=== PATIENT | male | born 1955 | race Caucasian/White ===

== ENCOUNTER → 2017-07-21 14:24 | Outpatient (CLI) | payer BC, SELFPAY ==
[2017-07-21 16:04] LABS: PSA,Total- Diagnostic < 0.01 ng/mL (0.0-4.0)
== END ==
PROVIDERS: Family Provider Preventive Medicine Occupational Medicine; PCP Preventive Medicine Occupational Medicine; Visit Provider Urology
DX: R97.20 Elevated prostate specific antigen [PSA] (principal)
CPT/HCPCS: 36415; 84153

== ENCOUNTER 2017-08-05 20:18 | Emergency (ER) | payer BC, SELFPAY ==
[2017-08-05 20:19] VITALS: BP 163/90; PULSE 102; RESP 17; TEMP 36.4; O2SAT 97; BMI 31.4
--- NOTE | 2017-08-05 20:44 | EKG12_ITS ---
Test Reason : Blood Pressure : / mmHG Vent. Rate : 080 BPM Atrial Rate : 080 BPM P-R Int : 134 ms QRS Dur : 082 ms QT Int : 384 ms P-R-T Axes : 031 -07 058 degrees QTc Int : 442 ms Normal sinus rhythm Normal ECG Confirmed by NELSY CERVANTES, JACK ([id number]), editor publications [place] ([id number]) on 08/08/2017 3:04:40 PM Referred By: DONTA Confirmed By:JACK WHITTINGTON MD
--- NOTE | 2017-08-05 20:48 | RAD_ITS ---
STUDY: X-RAY CHEST REASON FOR EXAM: Male, 62 years old. Dizziness for couple of days. Patient has dyspnea on exertion. TECHNIQUE: Single AP portable view of the chest. COMPARISON: Prior comparison studies are not available for review at this time. FINDINGS: There is mild elevation of the right hemidiaphragm. Interstitial thickening is visible in both lungs. There is no demonstrated pleural abnormality. Normal size heart. Normal mediastinum and david. There is prominence of the pulmonary hilar arteries with peripheral pulmonary vascular congestion. Normal visualized aortic arch and descending thoracic aorta. Normal visualized thoracic spine. Normal visualized ribs, clavicles, and shoulders. There is no demonstrated abnormality of the visualized soft tissue structures of the upper abdomen. RAD/Chest 1 View (Portable) IMPRESSION: No radiographic evidence of acute cardiopulmonary disease. Electronically Signed: Gudelia Prasad MD at 21:06 EDT , Service support ,
[2017-08-05] MEDS: 0.9% Normal Saline 1,000 ML 1000 ML IV (20:53)
[2017-08-05] MEDS: Aspirin 81 MG TAB.CHEW 324 MG PO (20:53)
[2017-08-05 21:08] VITALS: BP 140/94; BP 150/71; BP 152/91; PULSE 71; PULSE 83; PULSE 91
[2017-08-05 21:10] LABS: Absolute Lymphocyte Count 1.88 X10^3/ul (0.83-4.51); Absolute Neutrophil Count 3.3 X10^3/uL (2.0-7.7); Basophil# 0.02 X10^3/uL; Basophil% 0.4 % (0-1); Eosinophil# 0.05 X10^3/uL; Eosinophils% 0.9 % (0-5); Hematocrit 39.6 % (40-54); Hemoglobin 12.7 g/dl (13.0-16.5); Lymphocyte # 1.88 X10^3/ul (4.0); Lymphocyte % 32.9 % (19-41); Mean Corp Hgb Conc 32.1 g/gl (32-36); Mean Corpuscular Hgb 26.1 pg (27.0-32.0); Mean Corpuscular Volume 81.5 fL (80-94); Mean Platelet Vol. 9.5 fl (6.2-12.0); Monocyte# 0.45 X10^3/uL; Monocyte% 7.9 % (0-10); Neutrophil % 57.7 % (47-70); Platelet Count 229 K/mm3 (150-450); RBC Distribution Width CV 14.8 % (11.6-14.6); RBC Distribution Width SD 43.5 fl (35.1-43.9); Red Blood Count 4.86 M/mm3 (4.6-6.2); White Blood Count 5.7 K/mm3 (4.4-11.0)
[2017-08-05 21:11] LABS: POSITIVE COUNT NO; POSITIVE DIFFERENTIAL NO; POSITIVE MORPHOLOGY NO
[2017-08-05 21:18] LABS: D-Dimer Quantitative (DVT/PE) < 0.27 FEU/ug/m (0.27-0.49)
[2017-08-05 21:28] LABS: Anion Gap 6 (5-15); BUN 19 mg/dL (7-18); BUN/Creat Ratio 16.8 RATIO (10-20); Calcium,Total 8.9 mg/dL (8.5-10.1); Chloride 103 mmol/L (98-107); Creatinine, Serum 1.13 mg/dL (0.70-1.30); EST Glomerular Filtration Rate 70 mL/min (>60); Est Glom Filt Rate - Afr Amer 85 mL/min (>60); Glucose 149 mg/dL (74-106); Potassium 4.1 mmol/L (3.5-5.1); Sodium Level 138 mmol/L (136-145)
--- NOTE | 2017-08-05 22:13 | ED.DCSUM_ITS ---
- ER Visit Summary Date of Service: 08/05/17 Chief Complaint: Vertigo History of Present Illness: The patient is a [address] Ewing and Dr. Mccarthy. She reports that yesterday while he was at a working at a computer he had the onset of vertigo. States that he was nauseated and vomited. He was very diaphoretic with this. States that it lasted approximately 2 hours. He denies any ear pain, change in his hearing, ringing or roaring in his ears. States that this has not occurred again since that time. On review of systems patient reports that he has chest tightness that began today. It is a constant pain that is 4 out of 10 currently and at worst. Is worsened by nothing including exertion. Is also relieved by nothing. reports patient has been short of breath with walking for months. Patient denies any chest pain with this. He has never had a stress test or heart catheterization. Physical Examination: Vitals: Stable. Afebrile. General: Well-nourished and well-developed. Head: Normocephalic atraumatic. Neck: Supple, no lymphadenopathy. No JVD. Nontender. Cardiovascular: Regular rate and rhythm. No murmurs. Respiratory: No respiratory distress. Clear to auscultation bilaterally. Abdominal: Soft, nontender, nondistended, normal bowel sounds. No guarding, rebound, or peritoneal signs. Back: Nontender. Extremities: Nontender, no edema. Skin: Normal color, no rash. Neurologic: Alert and oriented ?3. Cranial nerves II through XII are intact. Normal strength and sensation. Psych: Normal affect. Test Results: Chest x-ray shows no acute disease. EKG is sinus at 80 with no acute changes. Is unchanged from February 2017. Troponin is negative. D-dimer is negative. Chem-7 is more for glucose 149 BUN of 19. CBC is marked for an H& H of 12.7 39.6. Emergency Department Course and Treatment: Patient was treated with Zofran IV and Antivert p.o. He is resting comfortably. Negative orthostatic vital signs. Treatment Plan: I had a prolonged discussion the patient about exertional dyspnea and the possibility of this being cardiac in etiology. States this been going on for months and does not want to be admitted to the hospital. He will be discharged with instructions to follow-up his primary care physician as soon as possible I have suggested that he needs a stress test. He is instructed to return to emerge department for chest pain, worsening shortness of breath, or for any other concerns. Even just changing his mind. Disposition: To home in improved and stable condition. Impression:. Dyspnea, uncertain cause. 2. Vertigo resolved. 3. ZENIA score of 0. This note was generated with [employer] dictation software. It may contain incorrect words, spelling, and punctuation that were not noted in review of the chart prior to signing ED Disposition - Plan for ED Patient: Disposition: Home or Assisted Living Chief Complaint: Dizziness Instructions: ED Dyspnea Shortness of Breath Referrals: Brian Chaudhari DO [Primary Care Provider] - As soon as possible
[2017-08-05 22:21] VITALS: BP 167/94; PULSE 71; RESP 18; O2SAT 100
== END 2017-08-05 22:22 | disposition home or self-care (01) ==
PROVIDERS: Emergency Provider Emergency Medicine; Family Provider Preventive Medicine Occupational Medicine; PCP Preventive Medicine Occupational Medicine
DX: R06.00 Dyspnea, unspecified (principal); R42 Dizziness and giddiness; R11.2 Nausea with vomiting, unspecified; R07.9 Chest pain, unspecified; R51 Headache; E11.9 Type 2 diabetes mellitus without complications; I10 Essential (primary) hypertension; G47.33 Obstructive sleep apnea (adult) (pediatric); Z79.84 Long term (current) use of oral hypoglycemic drugs; Z79.899 Other long term (current) drug therapy; Z85.46 Personal history of malignant neoplasm of prostate; Z90.79 Acquired absence of other genital organ(s)
CPT/HCPCS: 71045; 80048; 84484; 85025; 85379; 93005; 99285

== ENCOUNTER → 2017-08-30 06:26 | Outpatient (CLI) | payer BC, SELFPAY ==
--- NOTE | 2017-08-30 09:14 | STRESSREP ---
Stress Test Report Exercise myocardial perfusion stress test. 62-year-old man with a history of chest pressure. Medications atorvastatin lisinopril metformin. Stress protocol: Resting EKG demonstrates normal sinus rhythm with rate of 74 bpm normal intervals and noted resting blood pressure is 152/88 mmHg. The patient exercised according to regular Marino protocol for total duration of 8 minutes the maximum heart rate attained was 148 bpm which was 92% of maximum predicted heart rate the maximum workload attained was 10.1 metabolic equivalents. The patient maintained sinus rhythm throughout the recording. At rest there were no ST or T-wave changes noted suggest ischemia peak exercise upsloping ST changes only were noted with no meet the criteria for ischemia. No clinical angina was noted the test was terminated due to shortness of breath. The resting blood pressure was 152/88 with a peak blood pressure 214/88 mmHg rate pressure product was 30,100. Myocardial perfusion protocol. 14.5 mCi of technetium 99m sestamibi was injected at rest. The patient exercised according to regular Marino protocol for total duration of 8 minutes attaining 92% maximum predicted heart rate at peak exercise 44.3 mCi of technetium 99m sestamibi was injected stress images were obtained stress and rest images were reconstructed and compared in the short axis vertical long and horizontal long axis. Gated images were also obtained. Perfusion SPECT analysis. Review of the stress images demonstrate normal uptake of tracer noted in all areas of the myocardium. The resting images similarly demonstrate normal uptake of tracer noted in all areas of the myocardium. No obvious areas of reversibility are noted suggest ischemia no previous infarct is noted. Gated SPECT analysis: The gated ejection fraction is noted to be 75%. Conclusion: Normal exercise myocardial perfusion stress test at a high workload. Excellent functional capacity. Preserved ejection fraction.
== END ==
PROVIDERS: Family Provider Preventive Medicine Occupational Medicine; PCP Preventive Medicine Occupational Medicine
DX: R07.89 Other chest pain (principal); R06.02 Shortness of breath; R42 Dizziness and giddiness; G47.33 Obstructive sleep apnea (adult) (pediatric)
CPT/HCPCS: 78452; 93017; A9500; A4216

== ENCOUNTER → 2018-03-02 14:26 | Outpatient (CLI) | payer BC, SELFPAY ==
[2018-03-02 15:53] LABS: PSA,Total- Diagnostic 0.06 ng/mL (0.0-4.0)
== END ==
PROVIDERS: Family Provider Preventive Medicine Occupational Medicine; PCP Preventive Medicine Occupational Medicine; Referring Provider Urology; Visit Provider Urology
DX: C61 Malignant neoplasm of prostate (principal)
CPT/HCPCS: 36415; 84153

== ENCOUNTER → 2018-09-28 11:11 | Outpatient (CLI) | payer BC, SELFPAY ==
[2018-09-28 11:09] VITALS: BMI 31.4
--- NOTE | 2018-09-28 11:21 | RAD_ITS ---
STUDY: X-RAY CHEST REASON FOR EXAM: Male, 63 years old. Two-week history of cough and shortness of breath. TECHNIQUE: PA and lateral views of the chest. COMPARISON: Comparison is made with prior study of August 05, 2017. FINDINGS: The lungs are clear and expanded. There is no demonstrated pleural abnormality. Normal size heart. Normal mediastinum and david. Normal visualized pulmonary arteries. Normal visualized aortic arch and descending thoracic aorta. Normal visualized thoracic spine. Normal visualized ribs, clavicles, and shoulders. There is no demonstrated abnormality of the visualized soft tissue structures of the upper abdomen. RAD/Chest PA and Lateral IMPRESSION: Normal x-ray examination of the chest. Electronically Signed: Boby Santiago, at 12:28 EDT , Service support ,
== END ==
PROVIDERS: Family Provider Preventive Medicine Occupational Medicine; PCP Preventive Medicine Occupational Medicine; Referring Provider Physician Assistant Surgical; Visit Provider Physician Assistant Surgical
DX: J20.9 Acute bronchitis, unspecified (principal)
CPT/HCPCS: 71046

== ENCOUNTER → 2018-10-05 11:50 | Outpatient (CLI) | payer BC, SELFPAY ==
[2018-09-28 11:22] VITALS: BMI 31.4
[2018-10-05 12:47] LABS: PSA,Total- Diagnostic 0.35 ng/mL (0.0-4.0)
== END ==
PROVIDERS: Family Provider Preventive Medicine Occupational Medicine; PCP Preventive Medicine Occupational Medicine; Referring Provider Urology; Visit Provider Urology
DX: C61 Malignant neoplasm of prostate (principal)
CPT/HCPCS: 36415; 84153

== ENCOUNTER → 2018-11-20 12:10 | Outpatient (CLI) | payer BC, SELFPAY ==
[2018-09-28 11:22] VITALS: BMI 31.4
[2018-11-19 14:16] LABS: Absolute Lymphocyte Count 1.63 X10^3/ul (0.83-4.51); Basophil# 0.05 X10^3/uL; Basophil% 0.8 % (0-1); Eosinophil# 0.11 X10^3/uL; Eosinophils% 1.8 % (0-5); Hematocrit 40.4 % (40-54); Hemoglobin 13.4 g/dl (13.0-16.5); Lymphocyte # 1.63 X10^3/ul (4.0); Lymphocyte % 26.1 % (19-41); Mean Corp Hgb Conc 33.2 g/gl (32-36); Mean Corpuscular Hgb 27.9 pg (27.0-32.0); Mean Corpuscular Volume 84.2 fL (80-94); Mean Platelet Vol. 10.6 fl (6.2-12.0); Monocyte# 0.43 X10^3/uL; Monocyte% 6.9 % (0-10); Neutrophil # 4.01 X10^3/uL (2.7-7.7); Neutrophil % 64.2 % (47-70); Platelet Count 215 K/mm3 (150-450); RBC Distribution Width CV 13.1 % (11.6-14.6); RBC Distribution Width SD 39.8 fl (35.1-43.9); White Blood Count 6.2 K/mm3 (4.4-11.0)
[2018-11-19 14:25] LABS: POSITIVE COUNT NO; POSITIVE DIFFERENTIAL NO; POSITIVE MORPHOLOGY NO
[2018-11-19 14:36] LABS: Creatinine, Serum 1.27 mg/dL (0.70-1.30); EST Glomerular Filtration Rate 61 mL/min (>60); Est Glom Filt Rate - Afr Amer 74 mL/min (>60); PSA,Total- Diagnostic 0.05 ng/mL (0.0-4.0)
--- NOTE | 2018-11-20 12:16 | CT_ITS ---
STUDY: CT PELVIS WITH CONTRAST REASON FOR EXAM: Male, 63 years old. Recent diagnosis of prostate cancer. Radiation treatment planning examination. RADIATION DOSAGE (If Supplied By Facility): CTDIvol = ( 24.62 ) mGy, DLP = ( 881.08 ) mGycm TECHNIQUE: Transaxial imaging of the pelvis was performed without oral contrast. 100 IV/Oral Isovue 370 was administered intravenously. Individualized dose optimization techniques were used for this CT. COMPARISON: None. FINDINGS: Normal urinary bladder. The patient is status post prostatectomy. Radiation seeds are seen in the prostatic bed. The urethra is unremarkable. Normal visualized small intestine. Normal visualized colon. There is no pelvic fluid. There is no pelvic lymphadenopathy or mass lesion. There is diffuse atherosclerotic calcification of the pelvic arteries. Small bilateral inguinal hernias containing fat more prominent on the left side. There are diffuse degenerative changes of the visualized lumbar spine. Degenerative changes of the sacroiliac joints worse on the right side. CT/CT Pelvis W/CONT Therapy IMPRESSION: Status post prostatectomy. Radiation seeds are seen in the prostatic bed. Electronically Signed: Boby Santiago, at 13:28 EDT , Service support ,
== END ==
PROVIDERS: Family Provider Preventive Medicine Occupational Medicine; PCP Preventive Medicine Occupational Medicine; Referring Provider Radiology Radiation Oncology; Visit Provider Radiology Radiation Oncology
DX: Z01.818 Encounter for other preprocedural examination (principal); C61 Malignant neoplasm of prostate
CPT/HCPCS: 36415; 51600; 72193; 82565; 84153; 85025; Q9967

== ENCOUNTER → 2018-12-19 11:18 | Outpatient (CLI) | payer BC, SELFPAY ==
[2018-09-28 11:22] VITALS: BMI 31.4
[2018-12-19 12:12] LABS: Absolute Lymphocyte Count 0.58 X10^3/uL (0.83-4.51); Absolute Neutrophil Count 3.1 X10^3/uL (2.0-7.7); Basophil# 0.05 X10^3/uL; Basophil% 1.1 % (0-1); Eosinophils% 2.3 % (0-5); Hematocrit 39.2 % (40-54); Hemoglobin 13.1 g/dL (13.0-16.5); Lymphocyte # 0.58 X10^3/ul (4.0); Lymphocyte % 13.3 % (19-41); Mean Corp Hgb Conc 33.4 g/dL (32-36); Mean Corpuscular Hgb 28.5 pg (27.0-32.0); Mean Corpuscular Volume 85.2 fL (80-94); Mean Platelet Vol. 10.3 fl (6.2-12.0); Monocyte# 0.49 X10^3/uL; Monocyte% 11.3 % (0-10); NRBC Flagged by Analyzer 0 % (0-5); Neutrophil # 3.11 X10^3/uL (2.7-7.7); Neutrophil % 71.5 % (47-70); POSITIVE DIFFERENTIAL YES; Platelet Count 158 K/mm3 (150-450); RBC Distribution Width CV 13.3 % (11.6-14.6); RBC Distribution Width SD 40.5 fl (35.1-43.9); White Blood Count 4.4 K/mm3 (4.4-11.0)
[2018-12-19 12:15] LABS: Differential Indicated SCAN CRITERIA MET
== END ==
PROVIDERS: Family Provider Preventive Medicine Occupational Medicine; PCP Preventive Medicine Occupational Medicine; Referring Provider Radiology Radiation Oncology; Visit Provider Radiology Radiation Oncology
DX: C61 Malignant neoplasm of prostate (principal)
CPT/HCPCS: 36415; 85025

== ENCOUNTER → 2019-01-28 14:11 | Outpatient (CLI) | payer BC, SELFPAY ==
[2018-09-28 11:22] VITALS: BMI 31.4
[2019-01-28 14:55] LABS: Absolute Lymphocyte Count 0.73 X10^3/uL (0.83-4.51); Absolute Neutrophil Count 3.6 X10^3/uL (2.0-7.7); Basophil# 0.04 X10^3/uL; Basophil% 0.8 % (0-1); Eosinophil# 0.06 X10^3/uL; Eosinophils% 1.2 % (0-5); Hematocrit 38.5 % (40-54); Hemoglobin 13.2 g/dL (13.0-16.5); Lymphocyte # 0.73 X10^3/ul (4.0); Lymphocyte % 14.7 % (19-41); Mean Corp Hgb Conc 34.3 g/dL (32-36); Mean Corpuscular Hgb 29.5 pg (27.0-32.0); Mean Corpuscular Volume 86.1 fL (80-94); Mean Platelet Vol. 9.6 fl (6.2-12.0); Monocyte# 0.53 X10^3/uL; Monocyte% 10.7 % (0-10); NRBC Flagged by Analyzer 0 % (0-5); Neutrophil # 3.57 X10^3/uL (2.7-7.7); Neutrophil % 71.8 % (47-70); Platelet Count 200 K/mm3 (150-450); RBC Distribution Width CV 13.2 % (11.6-14.6); RBC Distribution Width SD 41.1 fl (35.1-43.9); Red Blood Count 4.47 M/mm3 (4.6-6.2)
== END ==
PROVIDERS: Family Provider Preventive Medicine Occupational Medicine; PCP Preventive Medicine Occupational Medicine; Referring Provider Radiology Radiation Oncology; Visit Provider Radiology Radiation Oncology
DX: C61 Malignant neoplasm of prostate (principal)
CPT/HCPCS: 36415; 85025

== ENCOUNTER → 2019-03-12 10:59 | Outpatient (CLI) | payer BC, SELFPAY ==
[2019-02-24 11:18] VITALS: BMI 31.4
[2019-03-12 11:46] LABS: Color, Urine Yellow (Yellow); Glucose, Dipstick Normal (Normal); Ketone-Dipstick 5 mg/dl (Negative); Leukocyte Esterase-Dipstick Negative /ul (Negative); Nitrite-Dipstick Negative (Negative); Occult Blood-Urine Negative /ul (Negative); Protein-Dipstick 30 mg/dl (Negative); Urine Bilirubin Dipstick Negative (Negative); Urine Clarity Sl. Cloudy (Clear); Urine Urobilinogen 4 mg/dl (Normal)
[2019-03-12 12:02] LABS: Microalbumin,Random Urine 60.2 mg/L (NO RANGE EST.); Microalbumin:Creatinine Ratio 18.9 mg/g CRE (<30 mg/g CRE); Protein, Urine (Random) 43.8 mg/dL (<11.9); Protein:Creat Ratio 138 mg/g CRE (0-200)
[2019-03-12 12:03] LABS: Albumin, Serum 3.8 g/dL (3.2-5.0); BUN 18 mg/dL (7-18); Calcium,Total 9.4 mg/dL (8.5-10.1); Chloride 104 mmol/L (98-107); EST Glomerular Filtration Rate 65 mL/min (>60); Est Glom Filt Rate - Afr Amer 79 mL/min (>60); Glucose 174 mg/dL (74-106); Phosphorus 3.5 mg/dL (2.5-4.9); Potassium 4.4 mmol/L (3.5-5.1); Sodium Level 137 mmol/L (136-145)
[2019-03-12 12:10] LABS: PTHIN 43.2 pg/mL (18.4-80.1); Vitamin D,25 Hydroxy 56.4 ng/mL (29.95-100.01)
== END ==
PROVIDERS: Family Provider Preventive Medicine Occupational Medicine; PCP Preventive Medicine Occupational Medicine; Referring Provider Internal Medicine Nephrology; Visit Provider Internal Medicine Nephrology
DX: N18.3 Chronic kidney disease, stage 3 (moderate) (principal)
CPT/HCPCS: 36415; 80069; 81002; 82043; 82306; 82570; 83970; 84156

== ENCOUNTER → 2019-03-13 13:59 | Outpatient (CLI) | payer BC, SELFPAY ==
[2019-02-24 11:18] VITALS: BMI 31.4
[2019-03-13 15:49] LABS: Hematocrit 37.6 % (40-54); Hemoglobin 12.3 g/dL (13.0-16.5); Mean Corp Hgb Conc 32.7 g/dL (32-36); Mean Corpuscular Hgb 29.5 pg (27.0-32.0); Mean Corpuscular Volume 90.2 fL (80-94); Mean Platelet Vol. 10.2 fl (6.2-12.0); Platelet Count 207 K/mm3 (150-450); RBC Distribution Width CV 13.4 % (11.6-14.6); RBC Distribution Width SD 44.3 fl (35.1-43.9); Red Blood Count 4.17 M/mm3 (4.6-6.2)
== END ==
PROVIDERS: Family Provider Preventive Medicine Occupational Medicine; PCP Preventive Medicine Occupational Medicine; Referring Provider Internal Medicine Nephrology; Visit Provider Internal Medicine Nephrology
DX: N18.3 Chronic kidney disease, stage 3 (moderate) (principal)
CPT/HCPCS: 85027

== ENCOUNTER → 2019-05-17 10:37 | Outpatient (CLI) | payer BC, SELFPAY ==
[2019-02-24 11:18] VITALS: BMI 31.4
[2019-05-17 11:58] LABS: PSA,Total- Diagnostic < 0.01 ng/mL (0.0-4.0)
== END ==
PROVIDERS: Family Provider Preventive Medicine Occupational Medicine; PCP Preventive Medicine Occupational Medicine; Referring Provider Urology; Visit Provider Urology
DX: C61 Malignant neoplasm of prostate (principal)
CPT/HCPCS: 36415; 84153; 84403

== ENCOUNTER → 2019-10-03 12:33 | Outpatient (CLI) | payer BC, SELFPAY ==
[2019-02-24 11:18] VITALS: BMI 31.4
[2019-10-03 14:20] LABS: Anion Gap 5 (5-15); BUN 18 mg/dL (7-18); Calcium,Total 9.5 mg/dL (8.5-10.1); Chloride 102 mmol/L (98-107); EST Glomerular Filtration Rate 65 mL/min (>60); Est Glom Filt Rate - Afr Amer 79 mL/min (>60); Glucose 195 mg/dL (74-106); PTHIN 43.8 pg/mL (18.4-80.1); Phosphorus 3.3 mg/dL (2.5-4.9); Potassium 4.7 mmol/L (3.5-5.1); Protein, Urine (Random) 43.4 mg/dL (<11.9); Protein:Creat Ratio 131 mg/g CRE (0-200); Sodium Level 136 mmol/L (136-145)
[2019-10-03 14:50] LABS: Color, Urine Yellow (Yellow); Glucose, Dipstick Normal (Normal); Ketone-Dipstick 5 mg/dl (Negative); Leukocyte Esterase-Dipstick 25 /ul (Negative); Nitrite-Dipstick Negative (Negative); Occult Blood-Urine Negative /ul (Negative); Protein-Dipstick 30 mg/dl (Negative); Specific Gravity, Urine 1.015 (1.002-1.030); Urine Bilirubin Dipstick Negative (Negative); Urine Clarity Sl. Cloudy (Clear); Urine Urobilinogen 4 mg/dl (Normal); Urine pH 6.5 (5.0 - 8.0)
== END ==
PROVIDERS: PCP Preventive Medicine Occupational Medicine; Referring Provider Internal Medicine; Visit Provider Internal Medicine
DX: N18.3 Chronic kidney disease, stage 3 (moderate) (principal)
CPT/HCPCS: 36415; 80048; 81002; 82570; 83970; 84100; 84156

== ENCOUNTER → 2019-11-20 11:13 | Outpatient (CLI) | payer BC, SELFPAY ==
[2019-02-24 11:18] VITALS: BMI 31.4
[2019-11-20 12:38] LABS: Anion Gap 6 (5-15); BUN 28 mg/dL (7-18); BUN/Creat Ratio 20.7 RATIO (10-20); Calcium,Total 8.9 mg/dL (8.5-10.1); Chloride 102 mmol/L (98-107); Creatinine, Serum 1.35 mg/dL (0.70-1.30); EST Glomerular Filtration Rate 57 mL/min (>60); Est Glom Filt Rate - Afr Amer 69 mL/min (>60); Glucose 131 mg/dL (74-106); PSA,Total- Diagnostic < 0.01 ng/mL (0.0-4.0); Potassium 4.4 mmol/L (3.5-5.1); Sodium Level 136 mmol/L (136-145)
== END ==
PROVIDERS: PCP Preventive Medicine Occupational Medicine; Referring Provider Urology; Visit Provider Urology
DX: C61 Malignant neoplasm of prostate (principal)
CPT/HCPCS: 36415; 80048; 84153

== ENCOUNTER → 2020-05-19 09:54 | Outpatient (CLI) | payer BC, SELFPAY ==
[2019-02-24 11:18] VITALS: BMI 31.4
[2020-05-19 10:55] LABS: PSA,Total- Diagnostic < 0.01 ng/mL (0.0-4.0)
== END ==
PROVIDERS: PCP Preventive Medicine Occupational Medicine; Referring Provider Urology; Visit Provider Urology
DX: C61 Malignant neoplasm of prostate (principal)
CPT/HCPCS: 36415; 84153

== ENCOUNTER → 2020-11-12 12:16 | Outpatient (CLI) | payer BC, SELFPAY ==
[2019-02-24 11:18] VITALS: BMI 31.4
[2020-11-12 14:12] LABS: PSA,Total- Diagnostic < 0.01 ng/mL (0.0-4.0)
== END ==
PROVIDERS: PCP Preventive Medicine Occupational Medicine; Visit Provider Urology
DX: C61 Malignant neoplasm of prostate (principal)
CPT/HCPCS: 36415; 84153

== ENCOUNTER → 2021-05-19 14:13 | Outpatient (CLI) | payer BC, SELFPAY ==
[2021-05-19 15:19] LABS: PSA,Total- Diagnostic < 0.01 ng/mL (0.0-4.0)
== END ==
PROVIDERS: PCP Preventive Medicine Occupational Medicine; Referring Provider Urology; Visit Provider Urology
DX: C61 Malignant neoplasm of prostate (principal)
CPT/HCPCS: 36415; 84153

== ENCOUNTER → 2022-06-22 | Outpatient (CLI) | payer MEDICARE, SELFPAY ==
[2022-06-22 14:25] LABS: Anion Gap 4 (5-15); BUN 20 mg/dL (7-18); BUN/Creat Ratio 14.6 RATIO (10-20); Calcium,Total 9.1 mg/dL (8.5-10.1); Chloride 106 mmol/L (98-107); Creatinine, Serum 1.37 mg/dL (0.70-1.30); EST Glomerular Filtration Rate 55 mL/min (>60); Est Glom Filt Rate - Afr Amer 67 mL/min (>60); Glucose 114 mg/dL (74-106); Potassium 5.2 mmol/L (3.5-5.1); Sodium Level 139 mmol/L (136-145)
[2022-06-22 14:37] LABS: Protein, Urine (Random) 43.6 mg/dL (<11.9); Protein:Creat Ratio 87 mg/g CRE (0-200)
== END | disposition home or self-care (01) ==
PROVIDERS: PCP Preventive Medicine Occupational Medicine; Referring Provider Internal Medicine Nephrology; Visit Provider Internal Medicine Nephrology
DX: N18.2 Chronic kidney disease, stage 2 (mild) (principal)
CPT/HCPCS: 36415; 80048; 82570; 84156

== ENCOUNTER 2022-10-31 14:08 | Outpatient (CLI) | payer MEDICARE, SELFPAY ==
[2022-10-31 09:09] VITALS: BP 137/85; PULSE 108; RESP 16; TEMP 36.9; O2SAT 100; BMI 31.6
--- NOTE | 2022-10-31 09:43 | HP.PCM_ITS ---
[facility] - General General Date of Admission: 10/31/22 Date of Service: 10/31/22 Chief Complaint: Screening colonoscopy HPI Narrative DANNIE GARCIA, is a 67 M who presents today for screening colonoscopy. He has a past medical history of diabetes, hypertension, hypercholesterolemia and arrives here today for screening colonoscopy. He does not have any abdominal pain. Does not any crampy. Does not have any chest pain or shortness of marvin th. Does not have any nausea. His prep was not that good so he is getting tapwater enemas prior to the colonoscopy.. [facility] Medical History (Updated 10/27/22 @ 13:57 by Ariella Mayer) Cancer Cardiology follow-up encounter CKD (chronic kidney disease) stage 3, GFR 30-59 ml/min CPAP (continuous positive airway pressure) dependence Depression Diabetes History of stress test Hypertension Low iron Non-smoker Prostate disease Shortness of breath on exertion Sleep apnea Wears glasses Home Medications lisinopril 5 mg tablet 5 mg PO QHS 03/02/17 [History Last Taken Unknown] atorvastatin 40 mg tablet 40 mg PO QHS 08/05/17 [History Last Taken Unknown] cinnamon bark 500 mg capsule (Cinnamon) 500 mg PO DAILY 09/29/22 [History Last Taken Unknown] coenzyme Q10 75 mg capsule (Ultra CoQ10) 75 mg PO DAILY 09/29/22 [History Last Taken Unknown] dapagliflozin propanediol 10 mg tablet (Farxiga) 10 mg PO DAILY 09/29/22 [History Last Taken Unknown] ferrous sulfate 325 mg (65 mg iron) tablet 325 mg PO DAILY 09/29/22 [History Last Taken Unknown] metformin 1,000 mg 24 hr tablet,extended release 1,000 mg PO BID 09/29/22 [History Last Taken Unknown] omega-3 fatty acids-fish oil 684 mg-1,200 mg capsule,delayed release 1 cap PO DAILY 09/29/22 [History Last Taken Unknown] sertraline 50 mg tablet 50 mg PO DAILY 09/29/22 [History Last Taken Unknown] vitamin D3 125 mcg (5,000 unit)-vitamin K2 90 mcg capsule cap PO 09/29/22 [History Last Taken Unknown] Allergy/AdvReac Type Severity Reaction Status Date / Time No Known Allergies Allergy Verified 10/31/22 09:08 Surgical History (Updated 10/27/22 @ 13:57 by Ariella Mayer) History of cardiac catheterization Hx of prostatectomy Social History (Updated 09/29/22 @ 11:11 by Renee De Leon) household members: spouse Smoking Status: Never smoker ROS Review of Systems ROS Unobtainable: other Constitutional Constitutional: Denies fatigue, fever(s), poor appetite, weight gain or weight loss ENT HEENT: Denies mouth lesions Cardiovascular Cardiovascular: Denies abdominal bloating, abdominal edema or abdominal pain Respiratory/Chest Respiratory/Chest: Denies change in mental status, change in phlegm color, chest congestion or chest tightness Gastrointestinal Gastrointestinal: Denies belching, bloating, change in bowel habits, change in stool character, chewing difficulty, coffee ground emesis, constipation, cramping, diarrhea, dyspepsia, dysphagia, early satiety, excessive flatus, fecal incontinence, heartburn, hematemesis, hematochezia, hemorrhoids, loose stools, melena, nausea, odynophagia, rectal bleeding, tenesmus, vomiting or weight changes Genitourinary Genitourinary: Denies abdominal discomfort, burning urination or itching Musculoskeletal Musculoskeletal: Reports as per HPI; Denies muscle weakness or myalgias Integumentary Integumentary: Denies jaundice Neurologic Neurologic: Denies lack of coordination or weakness Psychiatric Psychiatric: Denies confusion, depression, memory loss, mood swings, paranoia or suicidal ideation Endocrine Endocrinology: Denies systems reviewed and no addt'l complaints, except as documented Hematologic/Lymphatic Hematologic/Lymphatic: Denies anemia, easy bleeding, easy bruising or lymphadenopathy Allergic/Immunologic Allergic/Immunologic: Denies systems reviewed and no addt'l complaints, except as documented Vital Signs Vital Signs Vital Signs: 10/31/22 09:09 10/31/22 09:09 Temperature 98.5 F Temperature Source Temporal Pulse Rate 108 H Respiratory Rate 16 Respiratory Pattern Normal Blood Pressure 137/85 H Blood Pressure Mean 102 Blood Pressure Source Monitor Blood Pressure Position Semi-Fowlers Blood Pressure Location Right Arm Pulse Ox 100 Oxygen Delivery Method Room Air Weight Weight: 232 lb 12.8 oz Body Mass Index (BMI) 31.6 Physical Exam Const alert General Appearance: cooperative Orientation / Consciousness: oriented to person HEENT hearing grossly normal bilaterally Head and Scalp: normal to inspection Face and Sinus: face symmetric Nose: external nose normal Mouth: oral and palatal mucosa normal Eyes conjunctivae normal General Eye: normal appearance of both eyes Neck full ROM General: normal visual inspection Lymph Lymphatic: no lymphadenopathy noted Chest inspection of chest normal and palpation of chest normal Chest: symmetrical chest wall rise Resp normal respiratory effort Effort and Inspection: able to speak in complete sentences Cardio regular rate GI non-distended Percussion: normal to percussion Rectal Exam: deferred Neuro Speech: speech normal Gait (Neuro): normal gait Assessment & Plan Assessment/Plan (1) Encounter for screening for malignant neoplasm of colon: PLAN: He was explained alternatives, risk, benefits including not withstanding bleeding, infection, sepsis, perforation, need for emergent surgery . He will have an ASA of 3.
[2022-10-31 10:02] LABS: Bedside Glucose 149 mg/dL (74-106)
--- NOTE | 2022-10-31 10:22 | SUR.PREOP ---
pt received [address] valencia order due to pt stool not being clear, after 4th enema dr valencia was made aware that pt stool was not any clearer, dr valencia went to talk to pt and the decision was made to cancel pt for today and reschedule him
== END 2022-10-31 23:59 | disposition home or self-care (01) ==
LOC: PAT 12-16 14:08
PROVIDERS: PCP Preventive Medicine Occupational Medicine; Referring Provider Preventive Medicine Occupational Medicine; Visit Provider Internal Medicine Gastroenterology
PROC: 0DJD8ZZ Inspection of Lower Intestinal Tract, Via Natural or Artificial Opening Endoscopic (ICD-10-PCS; CPT 45378; principal; 2022-10-31 10:25)
DX: Z01.818 Encounter for other preprocedural examination (principal)
CPT/HCPCS: 82962; J7120; J2405

== ENCOUNTER → 2022-11-11 | Outpatient (CLI) | payer MEDICARE, SELFPAY ==
[2022-11-11 15:55] LABS: Hematocrit 42.9 % (40-54); Hemoglobin 13.5 g/dL (13.0-16.5); Mean Corp Hgb Conc 31.5 g/dL (32-36); Mean Corpuscular Hgb 27.5 pg (27.0-32.0); Mean Corpuscular Volume 87.4 fL (80-94); Mean Platelet Vol. 10.3 fl (6.2-12.0); Platelet Count 231 K/mm3 (150-450); RBC Distribution Width CV 14.4 % (11.6-14.6); RBC Distribution Width SD 45.9 fl (35.1-43.9); Red Blood Count 4.91 M/mm3 (4.6-6.2)
[2022-11-11 16:11] LABS: Protein, Urine (Random) 29.2 mg/dL (<11.9); Protein:Creat Ratio 121 mg/g CRE (0-200)
[2022-11-11 16:31] LABS: Albumin, Serum 3.7 g/dL (3.2-5.0); BUN 17 mg/dL (7-18); BUN/Creat Ratio 12.1 RATIO (10-20); Calcium,Total 8.9 mg/dL (8.5-10.1); Chloride 105 mmol/L (98-107); Creatinine, Serum 1.41 mg/dL (0.70-1.30); EST Glomerular Filtration Rate 54 mL/min (>60); Est Glom Filt Rate - Afr Amer 65 mL/min (>60); Glucose 130 mg/dL (74-106); Phosphorus 2.4 mg/dL (2.5-4.9); Potassium 4.6 mmol/L (3.5-5.1); Sodium Level 138 mmol/L (136-145)
[2022-11-11 17:29] LABS: Vitamin D,25 Hydroxy 83.2 ng/mL
[2022-11-14 07:40] LABS: PTHIN 54.4 pg/mL (18.4-80.1)
== END | disposition home or self-care (01) ==
LOC: LAB 13:20
PROVIDERS: PCP Preventive Medicine Occupational Medicine; Referring Provider Internal Medicine Nephrology; Visit Provider Internal Medicine Nephrology
DX: N18.31 Chronic kidney disease, stage 3a (principal); E55.9 Vitamin D deficiency, unspecified
CPT/HCPCS: 36415; 80069; 82306; 82570; 83970; 84156; 85027

== ENCOUNTER 2022-11-25 09:33 | Day surgery (SDC) | payer MEDICARE, SELFPAY ==
--- NOTE | 2022-11-25 10:15 | HP.PCM_ITS ---
History and Physical Date of Admission: 11/25/22 Visit Reasons: SCOPE, POOR PREP W/DR FRIEND 10/31 Chief Complaint: c-scope Is patient in pain?: No Allergies No Known Allergies Allergy (Verified 11/09/22 09:50) Medications lisinopril 5 mg tablet 5 mg PO QHS 03/02/17 [History Confirmed 11/09/22] atorvastatin 40 mg tablet 40 mg PO QHS 08/05/17 [History Confirmed 11/09/22] cinnamon bark 500 mg capsule (Cinnamon) 500 mg PO DAILY 09/29/22 [History Confirmed 11/09/22] coenzyme Q10 75 mg capsule (Ultra CoQ10) 75 mg PO DAILY 09/29/22 [History Confirmed 11/09/22] dapagliflozin propanediol 10 mg tablet (Farxiga) 10 mg PO DAILY 09/29/22 [History Confirmed 11/09/22] ferrous sulfate 325 mg (65 mg iron) tablet 325 mg PO DAILY 09/29/22 [History Confirmed 11/09/22] omega-3 fatty acids-fish oil 684 mg-1,200 mg capsule,delayed release 1 cap PO DAILY 09/29/22 [History Confirmed 11/09/22] sertraline 50 mg tablet 50 mg PO DAILY 09/29/22 [History Confirmed 11/09/22] vitamin D3 125 mcg (5,000 unit)-vitamin K2 90 mcg capsule cap PO 09/29/22 [History Confirmed 11/09/22] semaglutide 0.25 mg or 0.5 mg (2 mg/3 mL) subcutaneous pen injector (Ozempic) 0.25 mg subcut QWEEK 11/09/22 [History Confirmed 11/09/22] [facility] Medical History Cancer Cardiology follow-up encounter CKD (chronic kidney disease) stage 3, GFR 30-59 ml/min CPAP (continuous positive airway pressure) dependence Depression Diabetes History of stress test Hypertension Low iron Non-smoker Prostate disease Shortness of breath on exertion Sleep apnea Wears glasses Surgical History History of cardiac catheterization Hx of prostatectomy Family History (Updated 11/09/22 @ 09:48 by Jocelyn Kwok) Mother Diabetes Social History (Updated 11/09/22 @ 09:49 by Jocelyn Kwok) household members: spouse Smoking Status: Never smoker alcohol intake: never substance use type: does not use HPI HPI HPI: 67-year-old gentleman. Here underwent open access evaluation for a colonoscopy. History demonstrates that Dr. García Vanegas performed a colonoscopy for him approximately 13 years prior. I report this examination was normal. The pa shima is on iron supplementation which was asked to be held. On October 31, 2022 an attempt was made to pursue a colonoscopy per Dr. Beavers Friend. He had a failed bowel prep and despite enemas could not be cleared so the procedure was canceled. The patient and present because the patient has had progressive shortness of breath of undetermined etiology. He states that he has had a stress test and echocardiogram and now even a heart cath which was not remarkable. The etiology to his progressive shortness of breath as far as the patient is aware has not yet been determined. He does have chronic renal insufficiency stage III and he is to see Dr. Rosado November 23, 2022. He also has a history of sleep apnea. He is scheduled for follow-up with Dr. Brian Choi December 2022. He recently was converted from metformin to Ozempic and has been feeling better and apparently a relatively high potassium level has now corrected itself. As of October 24, 2022 white count was 5.6 with a hemoglobin 12.9 hematocrit 39.6 platelet count 258,000. He did have prostate cancer 2017 and had a radical prostatectomy. He claims that it recurred and then he had local radiation treatment. He claims at the moment that his PSA levels are normal. He states that he has never been told that he has any bony metastasis. When he is feeling short of breath he does have a home pulse oximetry which apparently records above 95%. Most recent BUN 25 with creatinine of 1.57 and a GFR of 45 placing him in chronic kidney disease 3 AA. Coags were normal. I do not have his iron levels. ROS General General: Yes fatigue; No weight change, appetite, colon cancer, breast cancer or weakness HEENT HEENT: No difficulty swallowing, eye injury, eye surgery, swollen glands or hoarseness Endo Endocrine: Yes diabetes mellitus; No thyroid disease, thyroid cancer, Hair loss, heat intolerance or cold intolerance Skin Skin: No rash or changing moles Musc Musculoskeletal: No back problems, arthritis, rheumatoid arthritis, gout or joint pain Cardio Cardiovascular: Yes high blood pressure; No murmur, pacemaker, heart disease, atrial fibrillation, heart attack, heart stent, palpitations, shortness of breat with exertion or chest pain Psych Psychiatric: Yes depression and anxiety; No hearing voices Resp Respiratory: Yes shortness of breath, Yes sleep apnea, No cough, No COPD, No asthma, No emphysema and No wheezing Gastro Gastrointestinal: No abdominal pain, No nausea or vomiting, No diarrhea, No constipation, No blood in stool, No acid reflux, No hemorrhoids, No ulcers, No gallbladder problem and No black,tarry stools Fermín Hematologic: No blood thinners, No blood disorders, No bleeding, Yes anemia and No blood clots Neuro Neurologic: No system reviewed and no additional complaints, except as documented, No as per HPI, No abnormal gait, No abnormal hearing, No abnormal movements, No abnormal speech, No behavioral changes, No burning sensations, No confusion, No convulsions, No disequilibrium, No dizziness, No localized weakness, No frequent falls, No headache(s), No lack of coordination, No loss of vision, No memory loss, No numbness, No other visual disturbances, No radicular pain, No restless legs, No sensory deficit, No syncope, No tingling, No tremor(s), No weakness and No other Exam Const General: cooperative, comfortable and no acute distress Other: Pale in complexion however history of being redheaded and always pale HENMT Head: normal to inspection Eyes General: appearance normal, both eyes and all related structures Neck Neck: normal visual inspection Chest Chest palpation & inspection: normal inspection of the chest Resp Effort & Inspection: normal respiratory effort Auscultation: clear to auscultation bilaterally Cardio Rate: regular rate Rhythm: regular rhythm GI Inspection: normal to inspection Palpation: soft and no hepatosplenomegaly Musc Cervical Spine: normal cervical lordosis Skin General: no rashes or lesions noted Neuro General: patient alert, patient awake and patient oriented x3 Extrem General: no calf tenderness Psych Appearance: grossly normal Assessment and Plan Assessment and Plan (1) Encounter for screening for malignant neoplasm of colon: Status: Acute Plan: Shortness of breath and iron deficiency anemia of undetermined etiology. I recommended the patient a combined esophagogastroduodenoscopy with possible biopsy and colonoscopy with possible biopsy or polypectomy as indicated. He and his are aware of the technique, benefit, risk, alternatives. We will have him hold his fish oil therapy at the moment. We will provide at his acknowledgment a GoLytely bowel prep supplemented with Dulcolax tablets. We will try to schedule and expedite his care. I appreciate the opportunity of assisting with the surgical care. Copy: Dr. Brian Barr M.D., F.A.C.S. I have examined the patient and the H&P has been reviewed. There are no clinical changes since date of exam. Brian Barr M.D., F.A.C.S.
[2022-11-25 10:16] VITALS: BP 131/80; PULSE 79; RESP 16; TEMP 36.6; O2SAT 96; BMI 30.5
[2022-11-25] MEDS: Lactated Ringers 1,000 ML 15 ML IV (10:29)
--- NOTE | 2022-11-25 10:45 | COLBX_PTH ---
PATIENT: DANNIE GARCIA LOC: EN U#:[id number] AGE/SX: 67/M ROOM: RE11/25/[address]: Dr. Brian Barr MD : [id number] BED: DIS: 11/25/2022 SPEC #: [id number] RECD: 11/25/22 11:43 STATUS: NICO REMika #: [id number] VAL: 11/25/22 10:[address]: Brian Barr DEPT: SURGICAL PATHOLOGY RECD BY: Chris Ellis ENTERED: 11/25/22 12:25 SP TYPE: COLON BX OTHR DR: Dr. Brian Chaudhari DO Tissues: A - Gastric mucous membrane B - Esophagus, NOS Procedures: Surgery Specimen Level IV HEADER OPERATION: Colonoscopy, EGD with biopsies ([facility]) PRE-OP DIAGNOSIS: Screening TISSUE SUBMITTED: A - Antrum biopsy for H. pylori and path, B - Distal esophagus biopsy MICROSCOPIC DIAGNOSIS A. Antrum, biopsy: Mild gastritis. See microscopic description and comment. B. Distal esophagus, biopsy: A fragment of squamous mucosa with chronic inflammation. SJ: 11/28/2022 COMMENT A. The results of immunohistochemistry for Helicobacter pylori will be reported separately ([id number]). MICROSCOPIC DESCRIPTION Slides are reviewed. The specimen shows fragments of gastric mucosa with chronic inflammatory cell infiltrates in the lamina propria consisting of lymphocytes and plasma cells, consistent with mild chronic gastritis. GROSS DESCRIPTION A - Received in fixative is one container labeled with the patient's name and designated antrum biopsy. The specimen consists of one irregular fragment of light sales soft tissue that measures 0.3 x 0.3 x 0.1 cm. The specimen is totally submitted in one cassette. B - Received in fixative is one container labeled with the patient's name and designated distal esophagus biopsy. The specimen consists of one irregular fragment of light sales soft tissue that measures 0.4 x 0.2 x 0.1 cm. The specimen is totally submitted in one cassette. / MARY:haley 11/25/2022 TC:3 CPT: 57340 x2
--- NOTE | 2022-11-25 10:45 | IMM_PTH ---
PATIENT: DANNIE GARCIA LOC: EN U#:[id number] AGE/SX: 67/M ROOM: RE11/25/[address]: Dr. Brian Barr MD : 1955 BED: DIS: 11/25/2022 SPEC #: [id number] RECD: 11/25/22 14:14 STATUS: NICO REQ #: [id number] VAL: 11/25/22 10:[address]: Brian Barr DEPT: IMMUNOHISTOCHEMISTRY RECD BY: Suzy Diaz ENTERED: 11/25/22 14:15 SP TYPE: IMMUNO OTHR DR: Dr. Brian Chaudhari DO Tissues: A - Stomach, NOS Procedures: H Pylori (initial) PHYSICIAN & INSTITUTION [place] [address] SPECIMEN INFORMATION: Tissue Source: A - Antrum Clinical Info: Screening Specimen Number: [id number] CPT code: 21825 METHODOLOGY: Deparaffinized sections of prefer/formalin-fixed tissue or PAP/DQ stained slides are incubated with monoclonal/polyclonal antibodies/oligonucleotide probes. Localization is made via biotin free immunoperoxidase method. Appropriate controls are performed and reacted as expected. Results on target cell population are indicated in the following table: RESULTS: ANTIBODY / CLONE RESULT Block A H Pylori (polyclonal) negative These tests were developed and their performance characteristics determined by [facility]. They may not have been cleared or approved by the U.S. Food and Drug Administration. The FDA has determined that such clearance or approval is not necessary. The above immunohistochemical/dualISH markers are ordered and reviewed by the Pathologist. INTERPRETATION: A. Antrum, biopsy: Negative for H. pylori organisms. SJ : 11/29/22
[2022-11-25 11:09] LABS: Bedside Glucose 138 mg/dL (74-106)
[2022-11-25 11:20] VITALS: BP 131/80; BP 83/45; PULSE 86; RESP 16; TEMP 36.2; O2SAT 96
--- NOTE | 2022-11-25 11:21 | OP.CCLET_ITS ---
11/25/2022 Brian Chaudhari [address] [place] [address] Re : Upper GI endoscopy procedure for Jose Dickey Dear Dr. Chaudhari This procedure was performed on Friday, November 25, 2022. My impressions and recommendations are as follows: Impressions : - Z-line regular, 40 cm from the incisors. Biopsied. - 1 cm hiatal hernia. - Erythematous mucosa in the antrum. Biopsied. - Normal examined duodenum. Recommendations : - Discharge patient to home. - Resume previous diet. - Continue present medications. - Telephone my office for pathology results in 1 week. Endings are very mild and do not appear to explain or correlate with the patient is concerned of shortness of breath. My findings are described in the full procedure note, which is enclosed. If I can be of further assistance, please feel free to contact me at Doctor phone number(s): Work: . Sincerely, Brian Barr MD 11/25/2022 11:20:38 AM This report has been signed electronically.
--- NOTE | 2022-11-25 11:21 | OP.EGD_ITS ---
Patient Name: Jose Dickey Procedure Date: 11/25/2022 10:42 AM Date of : 1955 Age: 67 Procedure: Upper GI endoscopy Indications: Iron deficiency anemia Providers: Brian Barr MD Referring MD: Brian Chaudhari Medicines: See the Anesthesia note for documentation of the administered medications Complications: No immediate complications. Procedure: Pre-Anesthesia Assessment: - Prior to the procedure, a History and Physical was performed, and patient medications and allergies were reviewed. The patient's tolerance of previous anesthesia was also reviewed. The risks and benefits of the procedure and the sedation options and risks were discussed with the patient. All questions were answered, and informed consent was obtained. Prior Anticoagulants: The patient has taken no previous anticoagulant or antiplatelet agents. ASA Grade Assessment: II - A patient with mild systemic disease. After reviewing the risks and benefits, the patient was deemed in satisfactory condition to undergo the procedure. After obtaining informed consent, the endoscope was passed under direct vision. Throughout the procedure, the patient's blood pressure, pulse, and oxygen saturations were monitored continuously. The Endoscope was introduced through the mouth, and advanced to the second part of duodenum. The upper GI endoscopy was accomplished without difficulty. The patient tolerated the procedure well. Scope In: 10:50:41 AM Scope Out: 10:56:35 AM Total Procedure Duration Time 0 hours 5 minutes 54 seconds Findings: The Z-line was regular and was found 40 cm from the incisors. Biopsies were taken with a cold forceps for histology. A 1 cm hiatal hernia was present. Diffuse mildly erythematous mucosa without bleeding was found in the gastric antrum. Biopsies were taken with a cold forceps for histology. The examined duodenum was normal. Impression: - Z-line regular, 40 cm from the incisors. Biopsied. - 1 cm hiatal hernia. - Erythematous mucosa in the antrum. Biopsied. - Normal examined duodenum. Recommendation: - Discharge patient to home. - Resume previous diet. - Continue present medications. - Telephone my office for pathology results in 1 week. Endings are very mild and do not appear to explain or correlate with the patient is concerned of shortness of breath. Procedure Code(s): --- Professional --- 99830, Esophagogastroduodenoscopy, flexible, transoral; with biopsy, single or multiple Diagnosis Code(s): --- Professional --- K44.9, Diaphragmatic hernia without obstruction or gangrene K31.89, Other diseases of stomach and duodenum D50.9, Iron deficiency anemia, unspecified CPT copyright 2017 [employer]. All rights reserved. The codes documented in this report are preliminary and upon office administrator review may be revised to meet current compliance requirements. Brian Barr MD 11/25/2022 11:20:38 AM This report has been signed electronically. Number of Addenda: 0 Note Initiated On: 11/25/2022 10:42 AM
[2022-11-25 11:25] VITALS: BP 131/80; BP 80/42; PULSE 84; RESP 16; O2SAT 94
--- NOTE | 2022-11-25 11:26 | OP.COLON_ITS ---
Patient Name: Jose Dickey Procedure Date: 11/25/2022 10:57 AM Date of : 1955 Age: 67 Procedure: Colonoscopy Indications: Screening for colorectal malignant neoplasm Providers: Brian Barr MD Referring MD: Brian Chaudhari Medicines: See the Anesthesia note for documentation of the administered medications Patient Profile: Last Colonoscopy: more than 10 years ago. Complications: No immediate complications. Procedure: Pre-Anesthesia Assessment: - Prior to the procedure, a History and Physical was performed, and patient medications and allergies were reviewed. The patient's tolerance of previous anesthesia was also reviewed. The risks and benefits of the procedure and the sedation options and risks were discussed with the patient. All questions were answered, and informed consent was obtained. Prior Anticoagulants: The patient has taken no previous anticoagulant or antiplatelet agents. ASA Grade Assessment: II - A patient with mild systemic disease. After reviewing the risks and benefits, the patient was deemed in satisfactory condition to undergo the procedure. - Prior to the procedure, a History and Physical was performed, and patient medications and allergies were reviewed. The patient's tolerance of previous anesthesia was also reviewed. The risks and benefits of the procedure and the sedation options and risks were discussed with the patient. All questions were answered, and informed consent was obtained. Prior Anticoagulants: The patient has taken no previous anticoagulant or antiplatelet agents. ASA Grade Assessment: II - A patient with mild systemic disease. After reviewing the risks and benefits, the patient was deemed in satisfactory condition to undergo the procedure. After I obtained informed consent, the scope was passed under direct vision. Throughout the procedure, the patient's blood pressure, pulse, and oxygen saturations were monitored continuously. The adult colonoscope was introduced through the anus and advanced to the cecum, identified by appendiceal orifice and ileocecal valve. The colonoscopy was performed without difficulty. The patient tolerated the procedure well. The quality of the bowel preparation was good. The ileocecal valve and the appendiceal orifice were photographed. Scope In: 10:59:58 AM Scope Withdrawal Time 0 hours 8 minutes 0 seconds Scope Out: 11:14:49 AM Total Procedure Duration Time 0 hours 14 minutes 51 seconds Findings: The digital rectal exam findings include internal hemorrhoids that prolapse with straining, but spontaneously regress to the resting position (Grade II). A few diverticula were found in the sigmoid colon. Impression: - Internal hemorrhoids that prolapse with straining, but spontaneously regress to the resting position (Grade II) found on digital rectal exam. Telenectasias of the rectal mucosa. No evidence of current bleeding. Possible side effect of history of prostate radiation locally. Conservative measures recommended at this time - Diverticulosis in the sigmoid colon. - No specimens collected. Recommendation: - Discharge patient to home. - Resume previous diet. - Continue present medications. - Repeat colonoscopy in 10 years for screening purposes. Procedure Code(s): --- Professional --- 80050, Colonoscopy, flexible; diagnostic, including collection of specimen(s) by brushing or washing, when performed (separate procedure) Diagnosis Code(s): --- Professional --- Z12.11, Encounter for screening for malignant neoplasm of colon K64.1, Second degree hemorrhoids K57.30, Diverticulosis of large intestine without perforation or abscess without bleeding CPT copyright 2017 [employer]. All rights reserved. The codes documented in this report are preliminary and upon mortar worker review may be revised to meet current compliance requirements. Brian Barr MD 11/25/2022 11:26:15 AM This report has been signed electronically. Number of Addenda: 0 Note Initiated On: 11/25/2022 10:57 AM
--- NOTE | 2022-11-25 11:27 | OP.CCLET_ITS ---
11/25/2022 Brian Chaudhari [address] [place] [address] Re : Colonoscopy procedure for Jose Dickey Dear Dr. Chaudhari This procedure was performed on Friday, November 25, 2022. My impressions and recommendations are as follows: Impressions : - Internal hemorrhoids that prolapse with straining, but spontaneously regress to the resting position (Grade II) found on digital rectal exam. Telenectasias of the rectal mucosa. No evidence of current bleeding. Possible side effect of history of prostate radiation locally. Conservative measures recommended at this time - Diverticulosis in the sigmoid colon. - No specimens collected. Recommendations : - Discharge patient to home. - Resume previous diet. - Continue present medications. - Repeat colonoscopy in 10 years for screening purposes. My findings are described in the full procedure note, which is enclosed. If I can be of further assistance, please feel free to contact me at Doctor phone number(s): Work: . Sincerely, Brian Barr MD 11/25/2022 11:26:15 AM This report has been signed electronically.
[2022-11-25 11:30] VITALS: BP 104/80; BP 131/80; PULSE 86; RESP 16; O2SAT 96
[2022-11-25 11:35] VITALS: BP 131/80; BP 132/69; PULSE 82; RESP 16; TEMP 36.9; O2SAT 96
[2022-11-25 11:52] VITALS: BP 131/80
== END 2022-11-25 11:57 | disposition home or self-care (01) ==
LOC: EN 09:34 → AC 09:52
PROVIDERS: PCP Preventive Medicine Occupational Medicine; Referring Provider Preventive Medicine Occupational Medicine; Visit Provider Surgery
PROC: 0DJD8ZZ Inspection of Lower Intestinal Tract, Via Natural or Artificial Opening Endoscopic (ICD-10-PCS; CPT 45378; principal; 2022-11-25 10:40)
DX: Z12.11 Encounter for screening for malignant neoplasm of colon (principal); E11.22 Type 2 diabetes mellitus with diabetic chronic kidney disease; I25.119 Atherosclerotic heart disease of native coronary artery with unspecified angina pectoris; N18.31 Chronic kidney disease, stage 3a; K64.1 Second degree hemorrhoids; K57.30 Diverticulosis of large intestine without perforation or abscess without bleeding; K44.9 Diaphragmatic hernia without obstruction or gangrene; K29.70 Gastritis, unspecified, without bleeding; D50.9 Iron deficiency anemia, unspecified; I12.9 Hypertensive chronic kidney disease with stage 1 through stage 4 chronic kidney disease, or unspecified chronic kidney disease; Z79.84 Long term (current) use of oral hypoglycemic drugs; Z79.899 Other long term (current) drug therapy; Z85.46 Personal history of malignant neoplasm of prostate
CPT/HCPCS: 43239; 45378; 82962; 88305; 88342; J7120; J2405

== ENCOUNTER → 2022-12-23 | Outpatient (CLI) | payer MEDICARE, SELFPAY ==
--- NOTE | 2022-12-23 06:50 | CT_ITS ---
STUDY: CT CHEST WITHOUT CONTRAST REASON FOR EXAM: Male, 67 years old. DYSPNEA WITH EXERTION RADIATION DOSAGE (If Supplied By Facility): CTDIvol = ( 17.07 ) mGy, DLP = ( 688.74 ) mGycm TECHNIQUE: Transaxial imaging was performed without the administration of intravenous contrast material. Multiplanar coronal and sagittal images were reformatted. Individualized dose optimization techniques were used for this CT. COMPARISON: No relevant priors. FINDINGS: CHEST There is elevation of the right hemidiaphragm. Minimal linear scarring in the anterior medial aspect of the right lower lobe as well as in the posterior aspect of the lingular segment of the left upper lobe. There is no demonstrated pleural abnormality. There are calcifications of the coronary arteries. There are multiple small lymph nodes within the mediastinum, which are normal in size and morphology most compatible with reactive lymph hyperplasia. Normal hilar regions. Normal unenhanced pulmonary arteries. There is atherosclerotic calcification of the aortic arch with tortuosity and elongation of the aortic arch and descending thoracic aorta. There are degenerative changes of the thoracic spine. Fatty infiltration of the liver. CT/Chest without Contrast IMPRESSION: Mild scarring in the anterior aspect of the right lower lobe as well as the posterior aspect of the lingular segment of the left upper lobe. Elevation of the right hemidiaphragm. Electronically Signed: Boby Santiago MD at 15:02 EDT ,
--- NOTE | 2022-12-23 12:54 | PFTCOMP_ITS ---
COMPLETE PULMONARY FUNCTION TEST INTERPRETATION Brief HPI: Patient is a 67-year-old female, currently under the care of Dr. Ewing, who presents to [facility] for complete pulmonary function tests secondary to diagnosis of dyspnea. Respiratory therapist reports good effort and reproducible results. Interpretation: Forced expiration spirometry shows no large airways obstructive ventilatory defect with an FEV1 of 108% predicted. There is no significant bronchodilator response by strict ATS criteria. Spirograms are of good quality and plateau normally. The respiratory flow volume loop shows a normal pattern. Lung volumes by body plethysmography show a normal total lung capacity at 6.56 L, 87% predicted. All other lung volumes are within normal limits. Diffusion capacity by carbon monoxide is normal at 96% predicted. The airway resistance is normal. No previous pulmonary function tests were available for review. Impression: These pulmonary function tests are within normal limits
== END | disposition home or self-care (01) ==
LOC: CT 06:46
PROVIDERS: PCP Preventive Medicine Occupational Medicine; Referring Provider Preventive Medicine Occupational Medicine; Visit Provider Preventive Medicine Occupational Medicine
DX: R06.09 Other forms of dyspnea (principal)
CPT/HCPCS: 71250; 94060; 94726; 94729

== ENCOUNTER → 2023-01-16 | Outpatient (CLI) | payer MEDICARE, SELFPAY ==
--- NOTE | 2023-01-16 09:25 | RAD_ITS ---
STUDY: X-RAY CHEST REASON FOR EXAM: Male, 67 years old. SOB TECHNIQUE: PA and lateral views of the chest. COMPARISON: Comparison is made with prior study dated September 28, 2018. FINDINGS: The lungs are clear and expanded. There is no demonstrated pleural abnormality. Normal size heart. Normal mediastinum and david. Normal visualized pulmonary arteries. There is atherosclerotic calcification of the aortic arch with tortuosity. There are mild degenerative changes of the visualized thoracic spine. Normal visualized ribs, clavicles, and shoulders. There is no demonstrated abnormality of the visualized soft tissue structures of the upper abdomen. RAD/Chest PA and Lateral IMPRESSION: Normal x-ray examination of the chest. Electronically Signed: Boby Santiago MD at 14:54 EDT ,
--- NOTE | 2023-01-16 09:30 | RAD_ITS ---
PROCEDURE: Sniff test. DATE OF EXAMINATION: January 16, 2023. INDICATION: Male, 67 years old. Shortness of breath. PHYSICIAN: Dr. Pamela Garcia FLUOROSCOPY TIME (if supplied): (28 seconds) minutes/seconds. 6.24 mGy. 2 images were obtained. RAD/Fluoroscopy 1 Hr or Less IMPRESSION: Normal movement of both right and left hemidiaphragms. Electronically Signed: Boby Santiago MD at 16:42 EDT ,
== END | disposition home or self-care (01) ==
LOC: RAD 09:23
PROVIDERS: PCP Preventive Medicine Occupational Medicine; Referring Provider Internal Medicine Pulmonary Disease; Visit Provider Internal Medicine Pulmonary Disease
DX: R06.02 Shortness of breath (principal)
CPT/HCPCS: 71046; 76000

== ENCOUNTER → 2023-04-17 | Outpatient (CLI) | payer MEDICARE, SELFPAY ==
[2023-04-17 14:56] LABS: Anion Gap 6 (5-15); BUN 18 mg/dL (7-18); BUN/Creat Ratio 12.2 RATIO (10-20); Calcium,Total 8.7 mg/dL (8.5-10.1); Chloride 104 mmol/L (98-107); Creatinine, Serum 1.48 mg/dL (0.70-1.30); EST Glomerular Filtration Rate 51 mL/min (>60); Est Glom Filt Rate - Afr Amer 61 mL/min (>60); Glucose 142 mg/dL (74-106); Potassium 4.4 mmol/L (3.5-5.1); Sodium Level 138 mmol/L (136-145)
[2023-04-17 15:31] LABS: Protein, Urine (Random) 36.4 mg/dL (<11.9); Protein:Creat Ratio 81 mg/g CRE (0-200)
== END | disposition home or self-care (01) ==
LOC: LAB 13:48
PROVIDERS: PCP Preventive Medicine Occupational Medicine; Referring Provider Internal Medicine Nephrology; Visit Provider Internal Medicine Nephrology
DX: N18.31 Chronic kidney disease, stage 3a (principal)
CPT/HCPCS: 36415; 80048; 82570; 84156

== ENCOUNTER → 2024-03-21 | Outpatient (CLI) | payer MEDICARE, SELFPAY ==
[2024-03-21 15:42] LABS: Protein, Urine (Random) 14.8 mg/dL (<11.9); Protein:Creat Ratio 99 mg/g CRE (0-200)
[2024-03-21 16:02] LABS: Anion Gap 6 (5-15); BUN 20 mg/dL (7-18); BUN/Creat Ratio 13.2 RATIO (10-20); Chloride 106 mmol/L (98-107); Creatinine, Serum 1.51 mg/dL (0.70-1.30); EST Glomerular Filtration Rate 49 mL/min (>60); Est Glom Filt Rate - Afr Amer 60 mL/min (>60); Glucose 108 mg/dL (74-106); Potassium 4.3 mmol/L (3.5-5.1); Sodium Level 138 mmol/L (136-145)
--- OUTSIDE RECORDS SUMMARY | 2024-03-21 18:07 | XMS RPT_ITS | CCD ---
Author Organization [facility] Inform ion [facility] Care Team Providers Care Manager Government Name Role Phone TOMASZ ERAZO DO Primary Care Physician ([phone] TOMASZ ERAZO DO Attending Unavailable TOMASZ ERAZO DO Primary Care Unavailable TOMASZ ERAZO DO Attending Unavailable TOMASZ ERAZO DO Primary Care Unavailable TOMASZ ERAZO DO Attending Unavailable TOMASZ ERAZO DO Primary Care Unavailable TOMASZ ERAZO DO Attending Unavailable TOMASZ ERAZO DO Primary Care Unavailable DONA BACON Attending TOMASZ Calero DO Primary Care Unavailable Medications Current Medications Medication Drug Class(es) Dates Sig (Normalized) Sig (Original) 0.25 MG, 0.5 MG Dose 3 ML semaglutide 0.68 MG/ML Pen Injector [Ozempic] (2 sources) Start: 12-07-2022 Ozempic 2 mg/3 mL (0.25 mg or 0.5 mg dose) subcutaneous solution mg =, Subcutaneous, 0 Refill(s) Start Date: 12/07/22 Status: Ordered 3 ML semaglutide 1.34 MG/ML Pen Injector [Ozempic] (1 source) Start: 10-30-2023 inject 1 dose by subcutaneous injection every week Ozempic 4 mg/3 mL (1 mg dose) subcutaneous solution Dose : 1 mg =, Subcutaneous, qWeek, # 3 mL, 0 Refill(s), Pharmacy: [facility]/pharmacy #[id number], 181, cm, 10/11/23 13:31:00 EDT, Height, kg, 10/11/23 13:31:00 EDT, Dosing Weight Start Date: 10/30/23 Status: Ordered atorvastatin 40 mg oral tablet (9 sources) HMG-CoA Reductase Inhibitor Start: 09-05-2023 End: 10-09-2024 atorvastatin 40 mg oral tablet Dose : 40 mg = 1 tab(s), Oral, qDay, # 100 tab(s), 3 Refill(s), Pharmacy: [facility], 180.5, cm, 04/05/23 13:20:00 EST, Height, kg, 04/05/23 13:20:00 EST, Dosing Weight Start Date: 09/05/23 Stop Date: 10/09/24 Status: Ordered Start: 09-07-2022 atorvastatin 4 0 mg oral tablet Dose : 40 mg = 1 tab(s), Oral, qDay, # 90 tab(s), 3 Refill(s), Pharmacy: [facility], 180.5, cm, 09/07/22 11:00:00 EDT, Height, kg, 09/07/22 11:00:00 EDT, Dosing Weight Start Date: 09/07/22 Status: Ordered Start: 09-15-2021 atorvastatin 4 0 mg oral tablet Dose : 40 mg = 1 tab(s), Oral, qDay, # 90 tab(s), 3 Refill(s), Pharmacy: [facility]/pharmacy #[id number], 181, cm, 09/15/21 9:09:00 EDT, Height, kg, 09/15/21 9:09:00 EDT, Dosing Weight Start Date: 09/15/21 Status: Ordered Co Q-10 100 mg oral capsule (6 sources) Start: 10-13-2022 Co Q-10 100 mg oral capsule Dose : 100 mg = 1 cap(s), Oral, Daily, 0 Refill(s) Start Date: 10/13/22 Status: Ordered dapagliflozin 10 mg oral tablet (7 sources) Sodium-Glucose Cotransporter 2 Inhibitor Start: 09-09-2022 Farxiga 10 mg oral tablet Dose : 10 mg = 1 tab(s), Oral, qDay, # 30 tab(s), 1 Refill(s), Pharmacy: [facility], Diabetes CKD (chronic kidney disease) stage 3, GFR 30-59 ml/min, 180.5, cm, 09/07/22 11:00:00 EDT, Height Start Date: 09/09/22 Status: Ordered DME MISCellaneous (3 sources) Start: 10-11-2023 DME MISCellane ous See Instructions, DEXCOM G7 [place] (1 reader every 1-3 years), # 1 EA, 0 Refill(s), Pharmacy: [facility], Diabetes, 181, cm, 10/11/23 13:31:00 EDT, Height, 102.7, kg, 10/11/23 13:31:00 EDT, Dosing Weight Start Date: 10/11/23 Status: Ordered Start: 10-11-2023 DME MISCellane ous See Instructions, DEXCOM G7 Sensor, #3 (for 30 days), # 3 EA, 11 Refill(s), Pharmacy: [facility], Diabetes, 181, cm, 10/11/23 13:31:00 EDT, Height, 102.7, kg, 10/11/23 13:31:00 EDT, Dosing Weight Start Date: 10/11/23 Status: Ordered Start: 10-11-2023 DME MISCellane ous See Instructions, DEXCOM G7 Transmitter (1 transmitter every 90 days), # 1 EA, 3 Refill(s), Pharmacy: [facility], Diabetes, 181, cm, 10/11/23 13:31:00 EDT, Height, 102.7, kg, 10/11/23 13:31:00 EDT, Dosing Weight Start Date: 10/11/23 Status: Ordered ferrous sulfate 325 mg oral tablet (6 sources) Start: 10-13-2022 IRON (ferrous sulfate 325 mg) 65 mg oral tablet Dose : 325 mg = 1 tab(s), Oral, Daily, Take with food., # 60 tab(s), 3 Refill(s) Start Date: 10/13/22 Status: Ordered lisinopril 5 mg oral tablet (9 sources) Angiotensin Converting Enzyme Inhibitor Start: 10-30-2023 lisinopril 5 mg oral tablet Dose : 5 mg = 1 tab(s), Oral, qDay, # 100 tab(s), 3 Refill(s), Pharmacy: [facility], 181, cm, 10/11/23 13:31:00 EDT, Height, kg, 10/11/23 13:31:00 EDT, Dosing Weight Start Date: 10/30/23 Status: Ordered Start: 09-07-2022 lisinopril 5 m g oral tablet Dose : 5 mg = 1 tab(s), Oral, qDay, # 90 tab(s), 3 Refill(s), Pharmacy: [facility], 180.5, cm, 09/07/22 11:00:00 EDT, Height, kg, 09/07/22 11:00:00 EDT, Dosing Weight Start Date: 09/07/22 Status: Ordered Start: 07-29-2021 lisinopril 5 m g oral tablet Dose : 5 mg = 1 tab(s), Oral, qDay, # 90 tab(s), 3 Refill(s), [id number], cm, 03/17/21 9:15:00 EDT, Height, kg, 03/17/21 9:15:00 EDT, Dosing Weight Start Date: 07/29/21 Status: Ordered metFORMIN hydrochloride 1000 mg oral tablet (6 sources) Biguanide Start: 09-07-2022 metFORMIN 1000 mg oral tablet (IR) Dose : 1,000 mg = 1 tab(s), Oral, BID, # 180 tab(s), 3 Refill(s), Pharmacy: [facility], 180.5, cm, 09/07/22 11:00:00 EDT, Height, kg, 09/07/22 11:00:00 EDT, Dosing Weight Start Date: 09/07/22 Status: Ordered Start: 09-15-2021 metFORMIN 500 mg oral tablet EXTENDED RELEASE Dose : 1,000 mg = 2 tab(s), Oral, BID, # 360 tab(s), 3 Refill(s), Pharmacy: [facility]/pharmacy #[id number], Diabetes, 181, cm, 09/15/21 9:09:00 EDT, Height, kg, 09/15/21 9:09:00 EDT, Dosing Weight Start Date: 09/15/21 Status: Ordered Hollywood-3 1000 mg oral capsule (3 sources) Start: 10-13-2022 Hollywood-3 1000 m g oral capsule Dose : 1,000 mg = 1 cap(s), Oral, qDay, 0 Refill(s) Start Date: 10/13/22 Status: Ordered sertraline 50 mg oral tablet (9 sources) Serotonin Reuptake Inhibitor Start: 10-30-2023 End: 12-03-2024 sertraline 50 mg oral tablet Dose : 75 mg = 1.5 tab(s), Oral, qDay, # 150 tab(s), 3 Refill(s), Pharmacy: [facility], 181, cm, 10/11/23 13:31:00 EDT, Height, kg, 10/11/23 13:31:00 EDT, Dosing Weight Start Date: 10/30/23 Stop Date: 12/03/24 Status: Ordered Start: 09-07-2022 sertraline 50 mg oral tablet Dose : 75 mg = 1.5 tab(s), Oral, qDay, # 135 tab(s), 3 Refill(s), Pharmacy: [facility], 180.5, cm, 09/07/22 11:00:00 EDT, Height, kg, 09/07/22 11:00:00 EDT, Dosing Weight Start Date: 09/07/22 Status: Ordered Start: 01-15-2021 sertraline 50 mg oral tablet Dose : 75 mg = 1.5 tab(s), Oral, qDay, # 135 tab(s), 3 Refill(s), Pharmacy: [facility]/pharmacy #[id number], 181, cm, 12/02/20 14:52:00 EDT, Height, kg, 12/02/20 14:52:00 EDT, Dosing Weight Start Date: 01/15/21 Status: Ordered sildenafil 100 mg oral tablet (1 source) Phosphodiesterase 5 Inhibitor Start: 12-13-2023 sildenafil 100 mg oral tablet Dose : 100 mg = 1 tab(s), Oral, qDay, 1 hour before sexual activity, # 10 tab(s), 1 Refill(s), Pharmacy: [facility], ED (erectile dysfunction) of non-organic origin, 180.5, cm, 12/13/23 13:40:00 EDT, Height, kg, 12/13/23 13:40:00 EDT, Dosing Weight Start Date: 12/13/23 Status: Ordered Vitamin D3 125 mcg (5000 intl units) oral capsule (6 sources) Start: 10-13-2022 Vitamin D3 125 mcg (5000 intl units) oral capsule Dose : 125 mcg = 1 cap(s), Oral, qDay, # 100 cap(s), 0 Refill(s) Start Date: 10/13/22 Status: Ordered Vitamin K2 100 mcg oral tablet (6 sources) Start: 10-13-2022 take 1 tablet by mouth once daily Vitamin K2 100 mcg oral tablet 100 mcg Dose = 1 tab(s), Oral, qDay, # 100 tab(s), 0 Refill(s) Start Date: 10/13/22 Status: Ordered Completed/Discontinued Medications Medication Drug Class(es) Dates Sig (Normalized) Sig (Original) [id number] 0.3 ml EPINEPHrine 1 mg/ml auto-injector (1 source) alpha-Adrenergic Agonist, beta-Adrenergic Agonist, Catecholamine Start: 12-13-2023 EpiPen 2-Jake 0.3 mg injectable kit Dose : 0.3 mg =, Intramuscular, AsDirected, PRN Allergic reaction, # 1 kit(s), 1 Refill(s), Pharmacy: [facility], Allergic to insect stings, 180.5, cm, 12/13/23 13:40:00 EDT, Height, kg, 12/13/23 13:40:00 EDT, Dosing Weight Start Date: 12/13/23 Status: Ordered predniSONE 10 mg oral tablet (1 source) Start: 01-16-2023 End: 01-21-2023 predniSONE 10 mg oral tablet Dose : 30 mg = 3 tab(s), Oral, qDay, # 15 tab(s), 0 Refill(s), [id number] 182, cm, 01/16/23 14:07:00 EDT, Height, kg, 01/16/23 14:07:00 EDT, Dosing Weight Start Date: 01/16/23 Stop Date: 01/21/23 Status: Ordered Problems Problem Classification Problem Date Documented Da te Episodic/Chronic Allergic reactions (1 source) Allergy to insect venom 12-13-2023 Episodic Anxiety disorders (9 sources) Anxiety disorder 11-16-2020 Chronic Cancer of prostate (10 sources) Malignant tumor of prostate; Translations: [Malignant neoplasm of prostate] 02-19-2019 Chronic Chronic kidney disease (9 sources) Chronic kidney disease stage 3 01-03-2019 Chronic Diabetes mellitus without complication (11 sources) Diabetes mellitus; Translations: [Type 2 diabetes mellitus without complication] 01-03-2019 Chronic Disorders of lipid metabolism (11 sources) Hyperlipidemia; Translations: [Hyperlipidemia, unspecified] 10-25-2019 Chronic Esophageal disorders (4 sources) Gastroesophageal reflux disease 01-03-2019 Chronic Essential hypertension (10 sources) Hypertensive disorder; Translations: [Essential hypertension] 01-03-2019 Chronic Malaise and fatigue (9 sources) Fatigue 10-25-2019 Episodic Mood disorders (9 sources) Depressive disorder 01-03-2019 Chronic Nonspecific chest pain (3 sources) Chest pain on exertion; Translations: [Chest pain] 09-07-2022 Episodic Other lower respiratory disease (2 sources) Dyspnea; Translations: [Other forms of dyspnea] Episodic Other lower respiratory disease (8 sources) Dyspnea on exertion 09-07-2022 Episodic Poisoning by nonmedicinal substances (1 source) Bee sting 01-16-2023 Episodic Residual codes; unclassified (10 sources) Obstructive sleep apnea syndrome; Translations: [Obstructive sleep apnea (adult) (pediatric)] 01-03-2019 Chronic Superficial injury; contusion (1 source) Contusion of right thigh; Translations: [Contusion of right thigh, initial encounter] Episodic Unclassified (9 sources) Patient encounter status 02-19-2019 Unclassified (1 source) Erectile dysfunction due to psychophysiologic disorder 12-13-2023 Unclassified (1 source) Finding of systemic arterial pressure 09-14-2023 Results Test Name Value Interpretation Reference Range Facility [id number] 01-16-2024 CK [Catalytic activity/Vol] 120 U/L Normal 41-331 Replaced By [facility] ([place]) Comment on above: Performed By: #### A ALIZE, ADIFF, [id number], GFR, CBC, CMP #### [address] [address] CK-BB 0 % Normal 0 Replaced By [facility] ([place] Comment on above: Result Comment: Perf ormed At: [facility] [address] [id number] Sara Mariano PhD Ph:[phone] Performed By: #### A ALIZE, ADIFF, [id number], GFR, CBC, CMP #### [address] [address] CK-Macro Type 1 0 % Normal Not Observed Replaced By [facility] ([place] Comment on above: Performed By: #### A ALIZE, ADIFF, [id number], GFR, CBC, CMP #### [address] [address] CK-Macro Type 2 0 % Normal Not Observed Replaced By [facility] ([place] Comment on above: Performed By: #### A ALIZE, ADIFF, [id number], GFR, CBC, CMP #### [address] [address] CK-MB 0 % Normal 0-3 Replaced By [facility] ([place] Comment on above: Performed By: #### A ALIZE, ADIFF, [id number], GFR, CBC, CMP #### [place] [address] CK-MM 100 % Normal 97-100 Replaced By [facility] ([place] Comment on above: Performed By: #### A ALIZE, ADIFF, [id number], GFR, CBC, CMP #### [place] [address] .Auto Diffon 01-12-2024 Basophil, Absolute 0.0 10 3/mcL Normal 0.0-0.2 [facility] ([place]) Comment on above: Performed By: #### A ALIZE, ADIFF, [id number], GFR, CBC, CMP #### [address] [address] Basophils/100 WBC (Bld) 0.9 % Normal 0.0-2.5 Replaced By [facility] ([place] Comment on above: Performed By: #### A ALIZE, ADIFF, [id number], GFR, CBC, CMP #### [address] [address] Eosinophil, Absolute 0.1 10 3/mcL Normal 0.0-0.4 [facility] ([place]) Comment on above: Performed By: #### A ALIZE, ADIFF, 947691, GFR, CBC, CMP #### [address] [address] Eosinophils/100 WBC (Bld) 1.1 % Normal 0.0-7.0 Replaced By [facility] ([place]) Comment on above: Performed By: #### A ALIZE, ADIFF, 718454, GFR, CBC, CMP #### [address] [address] Lymphocyte, Absolute 0.9 10 3/mcL Normal 0.8-3.9 [facility] ([place]) Comment on above: Performed By: #### A ALIZE, ADIFF, [id number], GFR, CBC, CMP #### [address] [address] Lymphocytes/100 WBC (Bld) 16.7 % Normal 10.0-50.0 Replaced By [facility] ([place]) Comment on above: Performed By: #### A ALIZE, ADIFF, 485855, GFR, CBC, CMP #### [address] [address] Monocyte, Absolute 0.4 10 3/mcL Normal 0.2-1.0 [facility] ([place]) Comment on above: Performed By: #### A ALIZE, ADIFF, [id number], GFR, CBC, CMP #### [address] [address] Monocytes/100 WBC (Bld) 7.8 % Normal 1.7-13.0 Replaced By [facility] ([place] Comment on above: Performed By: #### A ALIZE, ADIFF, [id number], GFR, CBC, CMP #### [address] [address] Neutrophils/100 WBC (Bld) 73.5 % Normal 37.0-80.0 Replaced By [facility] ([place] Comment on above: Performed By: #### A ALIZE, ADIFF, 779351, GFR, CBC, CMP #### [address] [address] .GFRon 01-12-2024 GFR 55 ml/min/1.73sqm Normal Replaced By [facility] ([place]) Comment on above: Result Comment: GFR Population mean for , Non- Americans Ages 20-29 = 116 mL/min/1.73 sq.m. Ages 30-39 = 107 mL/min/1.73 sq.m. Ages 40-49 = 99 mL/min/1.73 sq.m. Ages 50-59 = 93 mL/min/1.73 sq.m. Ages 60-69 = 85 mL/min/1.73 sq.m. Ages 70+ = 75 mL/min/1.73 sq.m. Chronic Kidney Disease: Less than 60 mL/min/1.73 square meters End Stage Renal Disease: Less than 15 mL/min/1.73 square meters Performed By: #### A ALIZE, ADIFF, [id number], GFR, CBC, CMP #### [address] [address] GFR Non- 45 ml/min/1.73sqm Normal Replaced By [facility] ([place] Comment on above: Result Comment: GFR Population mean for , Non- Americans Ages 20-29 = 116 mL/min/1.73 sq.m. Ages 30-39 = 107 mL/min/1.73 sq.m. Ages 40-49 = 99 mL/min/1.73 sq.m. Ages 50-59 = 93 mL/min/1.73 sq.m. Ages 60-69 = 85 mL/min/1.73 sq.m. Ages 70+ = 75 mL/min/1.73 sq.m. Chronic Kidney Disease: Less than 60 mL/min/1.73 square meters End Stage Renal Disease: Less than 15 mL/min/1.73 square meters Performed By: #### A ALIZE, ADIFF, [id number], GFR, CBC, CMP #### [address] [address] .NEUABSon 01-12-2024 Neutrophil, Absolute 3.9 10 3/mcL Normal 2.9-6.2 [facility] ([place]) Comment on above: Performed By: #### A ALIZE, ADIFF, 261481, GFR, CBC, CMP #### [address] [address] CBCon 01-12-2024 Erythrocyte distribution width (RBC) [Ratio] 16.3 % High 11.5-14.5 Replaced By [facility] ([place] Comment on above: Performed By: #### A ALIZE, ADIFF, 109905, GFR, CBC, CMP #### [address] [address] Hematocrit (Bld) [Volume fraction] 40.3 % Low 42.0-52.0 Replaced By [facility] ([place] Comment on above: Performed By: #### A ALIZE, ADIFF, 847235, GFR, CBC, CMP #### [place] [address] Hgb 13.2 G/dL Low 14.0-18.0 Replaced By [facility] ([place] Comment on above: Performed By: #### A ALIZE, ADIFF, 719596, GFR, CBC, CMP #### [place] [address] MCH (RBC) [Entitic mass] 26.3 pg Low 27.0-31.2 Replaced By [facility] ([place] Comment on above: Performed By: #### A ALIZE, ADIFF, 343909, GFR, CBC, CMP #### [place] [address] MCHC 32.7 G/dL Normal 31.8-35.4 Replaced By [facility] ([place] Comment on above: Performed By: #### A ALIZE, ADIFF, 841602, GFR, CBC, CMP #### [place] [address] MCV (RBC) [Entitic vol] 80.3 fL Normal 80.0-94.0 Replaced By [facility] ([place] Comment on above: Performed By: #### A ALIZE, ADIFF, 322945, GFR, CBC, CMP #### [place] [address] Platelet 212 10 3/mcL Normal 130-400 [facility] ([place]) Comment on above: Performed By: #### A ALIZE, ADIFF, 650090, GFR, CBC, CMP #### [place] [address] Platelet mean volume (Bld) [Entitic vol] 7.8 fL Normal 7.4-10.4 [facility] ([place]) Comment on above: Performed By: #### A ALIZE, ADIFF, 178274, GFR, CBC, CMP #### [address] [address] RBC 5.02 10 6/mcL Normal 4.04-6.13 [facility] ([place]) Comment on above: Performed By: #### A ALIZE, ADIFF, 857096, GFR, CBC, CMP #### [address] [address] WBC 5.2 10 3/mcL Normal 4.6-10.8 [facility] ([place]) Comment on above: Performed By: #### A ALIZE, ADIFF, 048653, GFR, CBC, CMP #### [address] [address] CMPon 01-12-2024 Albumin Level 3.7 G/dL Normal 3.4-4.8 [facility] ([place]) Comment on above: Performed By: #### A ALIZE, ADIFF, 454896, GFR, CBC, CMP #### [address] [address] Albumin/Globulin [Mass ratio] 1.2 {ratio} Normal 1.1-2.5 Replaced By [facility] ([place] Comment on above: Performed By: #### A ALIZE, ADIFF, 044072, GFR, CBC, CMP #### [address] [address] ALP [Catalytic activity/Vol] 105 U/L Normal 40-135 Replaced By [facility] ([place]) Comment on above: Performed By: #### A ALIZE, ADIFF, 350287, GFR, CBC, CMP #### [address] [address] ALT [Catalytic activity/Vol] 41 U/L Normal 16-63 Replaced By [facility] ([place] Comment on above: Performed By: #### A ALIZE, ADIFF, 991303, GFR, CBC, CMP #### [address] [address] AST [Catalytic activity/Vol] 26 U/L Normal 10-40 Replaced By [facility] ([place] Comment on above: Performed By: #### A ALIZE, ADIFF, 271189, GFR, CBC, CMP #### [address] [address] Bili Total 0.9 mg/dL Normal 0.2-1.0 Replaced By [facility] ([place] Comment on above: Result Comment: Use of this assay is not recommended for patients undergoing treatment with eltrombopag due to the potential for falsely elevated results. Performed By: #### A ALIZE, ADIFF, 289098, GFR, CBC, CMP #### [address] [address] BUN/Creatinine Ratio 13 ratio Normal 7-27 [facility] ([place]) Comment on above: Performed By: #### A ALIZE, ADIFF, 300780, GFR, CBC, CMP #### [address] [address] Calcium [Mass/Vol] 8.8 mg/dL Normal 8.4-10.2 [facility] ([place]) Comment on above: Performed By: #### A ALIZE, ADIFF, 347837, GFR, CBC, CMP #### [address] [address] Chloride [Moles/Vol] 104 mmol/L Normal 98-107 [facility] ([place]) Comment on above: Performed By: #### A ALIZE, ADIFF, 830941, GFR, CBC, CMP #### [address] [address] CO2 [Moles/Vol] 28 mmol/L Normal 23-31 [facility] ([place]) Comment on above: Performed By: #### A ALIZE, ADIFF, 134930, GFR, CBC, CMP #### [address] [address] Creatinine [Mass/Vol] 1.55 mg/dL High 0.70-1.30 [facility] ([place]) Comment on above: Performed By: #### A ALIZE, ADIFF, 337388, GFR, CBC, CMP #### [address] [address] Electrolyte Balance 9.0 mEq/L Normal 4.0-15.0 [facility] ([place]) Comment on above: Performed By: #### A ALIZE, ADIFF, 895666, GFR, CBC, CMP #### [address] [address] Globulin 3.1 G/dL Normal Replaced By [facility] ([place] Comment on above: Performed By: #### A ALIZE, ADIFF, 968824, GFR, CBC, CMP #### [address] [address] Glucose [Mass/Vol] 193 mg/dL High 80-115 [facility] ([place]) Comment on above: Performed By: #### A ALIZE, ADIFF, 582445, GFR, CBC, CMP #### [address] [address] Potassium [Moles/Vol] 4.9 mmol/L Normal 3.5-5.1 [facility] ([place]) Comment on above: Performed By: #### A ALIZE, ADIFF, 332691, GFR, CBC, CMP #### [address] [address] Sodium [Moles/Vol] 141 mmol/L Normal 136-145 [facility] ([place]) Comment on above: Performed By: #### A ALIZE, ADIFF, 191712, GFR, CBC, CMP #### [address] [address] Total Protein 6.8 G/dL Normal 6.4-8.2 [facility] ([place]) Comment on above: Performed By: #### A ALIZE, ADIFF, 654645, GFR, CBC, CMP #### [address] [address] Urea nitrogen [Mass/Vol] 20 mg/dL High 7-18 Replaced By [facility] ([place] Comment on above: Performed By: #### A ALIZE, ADIFF, 459001, GFR, CBC, CMP #### [address] [address] LABORATORYOrdered By: SYSTEM SYSTEM on 01-12-2024 Albumin BCP dye [Mass/Vol] 3.7 G/dL Normal 3.4 - 4.8 G/dL AO ADM SS Albumin/Globulin [Mass ratio] 1.2 {ratio} Normal 1.1 - 2.5 ratio AO ADM SS ALP [Catalytic activity/Vol] 105 U/L Normal 40 - 135 U/L AO ADM SS ALT With P-5'-P [Catalytic activity/Vol] 41 U/L Normal 16 - 63 U/L AO ADM SS AST With P-5'-P [Catalytic activity/Vol] 26 U/L Normal 10 - 40 U/L AO ADM SS Basophil, Absolute 0.0 103/mcL Normal 0.0 - 0.2 10^3/mcL AO Workflow SS Basophils/100 WBC (Bld) 0.9 % Normal 0.0 - 2.5 % AO Workflow SS Bilirubin [Mass/Vol] 0.9 mg/dL Normal 0.2 - 1 .0 mg/dL AO ADM SS Comment on above: Interpretive Data: U se of this assay is not recommended for patients undergoing treatment with eltrombopag due to the potential for falsely elevated results. Calcium [Mass/Vol] 8.8 mg/dL Normal 8.4 - 10. 2 mg/dL AO ADM SS Chloride [Moles/Vol] 104 mmol/L Normal 98 - 10 7 mmol/L AO ADM SS CO2 [Moles/Vol] 28 mmol/L Normal 23 - 31 mmol/L AO ADM SS Creatinine [Mass/Vol] 1.55 mg/dL High 0.70 - 1.30 mg/dL AO ADM SS Electrolyte Balance 9.0 mEq/L Normal 4.0 - 15 .0 mEq/L AO ADM SS Eosinophil, Absolute 0.1 103/mcL Normal 0.0 - 0 .4 10^3/mcL AO Workflow SS Eosinophils/100 WBC (Bld) 1.1 % Normal 0.0 - 7.0 % AO Workflow SS Erythrocyte distribution width (RBC) [Ratio] 16.3 % High 11.5 - 14.5 % AO Workflow SS GFR/1.73 sq M.predicted among blacks MDRD (S/P/Bld) [Vol rate/Area] 55 ml/min/1.73sqm Invalid Interpretation Code AO Chemistry S Comment on above: Interpretive Data: GFR Population mean for , Non- Americans Ages 20-29 = 116 mL/min/1.73 sq.m. Ages 30-39 = 107 mL/min/1.73 sq.m. Ages 40-49 = 99 mL/min/1.73 sq.m. Ages 50-59 = 93 mL/min/1.73 sq.m. Ages 60-69 = 85 mL/min/1.73 sq.m. Ages 70+ = 75 mL/min/1.73 sq.m. Chronic Kidney Disease: Less than 60 mL/min/1.73 square meters End Stage Renal Disease: Less than 15 mL/min/1.73 square meters GFR/1.73 sq M.predicted among non-blacks MDRD (S/P/Bld) [Vol rate/Area] 45 ml/min/1.73sqm Invalid Interpretation Code AO Chemistry S Comment on above: Interpretive Data: GFR Population mean for , Non- Americans Ages 20-29 = 116 mL/min/1.73 sq.m. Ages 30-39 = 107 mL/min/1.73 sq.m. Ages 40-49 = 99 mL/min/1.73 sq.m. Ages 50-59 = 93 mL/min/1.73 sq.m. Ages 60-69 = 85 mL/min/1.73 sq.m. Ages 70+ = 75 mL/min/1.73 sq.m. Chronic Kidney Disease: Less than 60 mL/min/1.73 square meters End Stage Renal Disease: Less than 15 mL/min/1.73 square meters Globulin 3.1 G/dL Invalid Interpretation Code AO ADM SS Glucose [Mass/Vol] 193 mg/dL High 80 - 115 mg/dL AO ADM SS Hematocrit (Bld) [Volume fraction] 40.3 % Low 42.0 - 52.0 % AO Workflow SS Hemoglobin (Bld) [Mass/Vol] 13.2 G/dL Low 14.0 - 18.0 G/dL AO Workflow SS Lymphocyte, Absolute 0.9 103/mcL Normal 0.8 - 3 .9 10^3/mcL AO Workflow SS Lymphocytes/100 WBC (Bld) 16.7 % Normal 10.0 - 50.0 % AO Workflow SS MCH (RBC) [Entitic mass] 26.3 pg Low 27.0 - 31.2 pg AO Workflow SS MCHC 32.7 G/dL Normal 31.8 - 35.4 G/dL AO Workflow SS MCV (RBC) [Entitic vol] 80.3 fL Normal 80.0 - 94.0 fL AO Workflow SS Monocyte, Absolute 0.4 103/mcL Normal 0.2 - 1.0 10^3/mcL AO Workflow SS Monocytes/100 WBC (Bld) 7.8 % Normal 1.7 - 13.0 % AO Workflow SS Neutrophil, Absolute 3.9 103/mcL Normal 2.9 - 6 .2 10^3/mcL AO Workflow SS Neutrophils/100 WBC (Bld) 73.5 % Normal 37.0 - 80.0 % AO Workflow SS Platelet mean volume (Bld) [Entitic vol] 7.8 fL Normal 7.4 - 10.4 fL AO Workflow SS Platelets (Bld) [#/Vol] 212 103/mcL Normal 130 - 400 10^3/mcL AO Workflow SS Potassium [Moles/Vol] 4.9 mmol/L Normal 3.5 - 5.1 mmol/L AO ADM SS Protein [Mass/Vol] 6.8 G/dL Normal 6.4 - 8.2 G/dL AO ADM SS RBC (Bld) [#/Vol] 5.02 106/mcL Normal 4.04 - 6.1 3 10^6/mcL AO Workflow SS Sodium [Moles/Vol] 141 mmol/L Normal 136 - 145 mmol/L AO ADM SS Urea nitrogen [Mass/Vol] 20 mg/dL High 7 - 18 mg/dL AO ADM SS Urea nitrogen/Creatinine [Mass ratio] 13 ratio Normal 7 - 27 ratio AO ADM SS WBC (Bld) [#/Vol] 5.2 103/mcL Normal 4.6 - 10.8 10^3/mcL AO Workflow SS .Auto Diffon 12-13-2023 Basophil, Absolute 0.1 10 3/mcL Normal 0.0-0.2 [facility] ([place]) Comment on above: Performed By: #### C BC, ANEU, LIPID, ADIFF, CMP, GFR, A1C #### [address] [place] [id number] [place], [place] [address] Basophils/100 WBC (Bld) 1.0 % Normal 0.0-2.5 Replaced By [facility] ([place]) Comment on above: Performed By: #### C BC, ANEU, LIPID, ADIFF, CMP, GFR, A1C #### [address] [address] Eosinophil, Absolute 0.1 10 3/mcL Normal 0.0-0.4 [facility] ([place]) Comment on above: Performed By: #### C BC, ANEU, LIPID, ADIFF, CMP, GFR, A1C #### [address] [address] Eosinophils/100 WBC (Bld) 2.0 % Normal 0.0-7.0 Replaced By [facility] ([place]) Comment on above: Performed By: #### C BC, ANEU, LIPID, ADIFF, CMP, GFR, A1C #### [address] [address] Lymphocyte, Absolute 1.1 10 3/mcL Normal 0.8-3.9 [facility] ([place]) Comment on above: Performed By: #### C BC, ANEU, LIPID, ADIFF, CMP, GFR, A1C #### [address] [address] Lymphocytes/100 WBC (Bld) 16.0 % Normal 10.0-50.0 Replaced By [facility] ([place]) Comment on above: Performed By: #### C BC, ANEU, LIPID, ADIFF, CMP, GFR, A1C #### [address] [address] Monocyte, Absolute 0.6 10 3/mcL Normal 0.2-1.0 [facility] ([place]) Comment on above: Performed By: #### C BC, ANEU, LIPID, ADIFF, CMP, GFR, A1C #### [address] [address] Monocytes/100 WBC (Bld) 9.0 % Normal 1.7-13.0 Replaced By [facility] ([place]) Comment on above: Performed By: #### C BC, ANEU, LIPID, ADIFF, CMP, GFR, A1C #### [address] [address] Neutrophils/100 WBC (Bld) 72.0 % Normal 37.0-80.0 Replaced By [facility] ([place]) Comment on above: Performed By: #### C BC, ANEU, LIPID, ADIFF, CMP, GFR, A1C #### [address] [address] .GFRon 12-13-2023 GFR 56 ml/min/1.73sqm Normal Replaced By [facility] ([place]) Comment on above: Result Comment: GFR Population mean for , Non- Americans Ages 20-29 = 116 mL/min/1.73 sq.m. Ages 30-39 = 107 mL/min/1.73 sq.m. Ages 40-49 = 99 mL/min/1.73 sq.m. Ages 50-59 = 93 mL/min/1.73 sq.m. Ages 60-69 = 85 mL/min/1.73 sq.m. Ages 70+ = 75 mL/min/1.73 sq.m. Chronic Kidney Disease: Less than 60 mL/min/1.73 square meters End Stage Renal Disease: Less than 15 mL/min/1.73 square meters Performed By: #### A ALIZE, ADIFF, [id number], GFR, CBC, CMP #### [address] [address] GFR Non- 46 ml/min/1.73sqm Normal Replaced By [facility] ([place]) Comment on above: Result Comment: GFR Population mean for , Non- Americans Ages 20-29 = 116 mL/min/1.73 sq.m. Ages 30-39 = 107 mL/min/1.73 sq.m. Ages 40-49 = 99 mL/min/1.73 sq.m. Ages 50-59 = 93 mL/min/1.73 sq.m. Ages 60-69 = 85 mL/min/1.73 sq.m. Ages 70+ = 75 mL/min/1.73 sq.m. Chronic Kidney Disease: Less than 60 mL/min/1.73 square meters End Stage Renal Disease: Less than 15 mL/min/1.73 square meters Performed By: #### A ALIZE, ADIFF, [id number], GFR, CBC, CMP #### [address] [address] .NEUABSon 12-13-2023 Neutrophil, Absolute 5.0 10 3/mcL Normal 2.9-6.2 [facility] ([place]) Comment on above: Performed By: #### C BC, ANEU, LIPID, ADIFF, CMP, GFR, A1C #### [address] [address] A1Con 12-13-2023 Glucose [Mass/Vol] 140 mg/dL Normal [facility] ([place]) Comment on above: Result Comment: Maria Luisa mated Average Glucose calculated by equation ((28.7xA1C)-46.7) Performed By: #### A ALIZE, ADIFF, [id number], GFR, CBC, CMP #### [place] [id number] HbA1c (Bld) [Mass fraction] 6.5 % High 4.3-6.4 Replaced By [facility] ([place]) Comment on above: Performed By: #### A ALIZE, ADIFF, [id number], GFR, CBC, CMP #### [place] [id number] CBCon 12-13-2023 Erythrocyte distribution width (RBC) [Ratio] 16.3 % High 11.5-14.5 Replaced By [facility] ([place]) Comment on above: Performed By: #### C BC, ANEU, LIPID, ADIFF, CMP, GFR, A1C #### [address] [address] Hematocrit (Bld) [Volume fraction] 43.2 % Normal 42.0-52.0 Replaced By [facility] ([place]) Comment on above: Performed By: #### C BC, ANEU, LIPID, ADIFF, CMP, GFR, A1C #### [address] [address] Hgb 14.1 G/dL Normal 14.0-18.0 Replaced By [facility] ([place]) Comment on above: Performed By: #### C BC, ANEU, LIPID, ADIFF, CMP, GFR, A1C #### [address] [address] MCH (RBC) [Entitic mass] 26.3 pg Low 27.0-31.2 [facility]) Comment on above: Performed By: #### C BC, ANEU, LIPID, ADIFF, CMP, GFR, A1C #### [address] [address] MCHC 32.7 G/dL Normal 31.8-35.4 Replaced By [facility] ([place]) Comment on above: Performed By: #### C BC, ANEU, LIPID, ADIFF, CMP, GFR, A1C #### [address] [address] MCV (RBC) [Entitic vol] 80.6 fL Normal 80.0-94.0 Replaced By [facility] ([place]) Comment on above: Performed By: #### C BC, ANEU, LIPID, ADIFF, CMP, GFR, A1C #### [address] [address] Platelet 226 10 3/mcL Normal 130-400 [facility] ([place]) Comment on above: Performed By: #### C BC, ANEU, LIPID, ADIFF, CMP, GFR, A1C #### [address] [address] Platelet mean volume (Bld) [Entitic vol] 7.8 fL Normal 7.4-10.4 [facility] ([place]) Comment on above: Performed By: #### C BC, ANEU, LIPID, ADIFF, CMP, GFR, A1C #### [address] [address] RBC 5.36 10 6/mcL Normal 4.04-6.13 [facility] ([place]) Comment on above: Performed By: #### C BC, ANEU, LIPID, ADIFF, CMP, GFR, A1C #### [address] [address] WBC 7.0 10 3/mcL Normal 4.6-10.8 [facility] ([place]) Comment on above: Performed By: #### C BC, ANEU, LIPID, ADIFF, CMP, GFR, A1C #### [address] [address] CMPon 12-13-2023 Albumin Level 3.4 G/dL Normal 3.4-4.8 [facility] ([place]) Comment on above: Performed By: #### C BC, ANEU, LIPID, ADIFF, CMP, GFR, A1C #### [address] [address] Albumin/Globulin [Mass ratio] 1.4 {ratio} Normal 1.1-2.5 Replaced By [facility] ([place] Comment on above: Performed By: #### C BC, ANEU, LIPID, ADIFF, CMP, GFR, A1C #### [address] [address] ALP [Catalytic activity/Vol] 98 U/L Normal 40-135 Replaced By [facility] ([place]) Comment on above: Performed By: #### C BC, ANEU, LIPID, ADIFF, CMP, GFR, A1C #### [address] [address] ALT [Catalytic activity/Vol] 43 U/L Normal 16-63 Replaced By [facility] ([place]) Comment on above: Performed By: #### C BC, ANEU, LIPID, ADIFF, CMP, GFR, A1C #### [address] [address] AST [Catalytic activity/Vol] 38 U/L Normal 10-40 Replaced By [facility] ([place]) Comment on above: Performed By: #### C BC, ANEU, LIPID, ADIFF, CMP, GFR, A1C #### [address] [address] Bili Total 0.6 mg/dL Normal 0.2-1.0 Replaced By [facility] ([place]) Comment on above: Result Comment: Use of this assay is not recommended for patients undergoing treatment with eltrombopag due to the potential for falsely elevated results. Performed By: #### C BC, ANEU, LIPID, ADIFF, CMP, GFR, A1C #### [address] [address] BUN/Creatinine Ratio 12 ratio Normal 7-27 [facility] ([place]) Comment on above: Performed By: #### C BC, ANEU, LIPID, ADIFF, CMP, GFR, A1C #### [address] [address] Calcium [Mass/Vol] 9.0 mg/dL Normal 8.4-10.2 [facility] ([place]) Comment on above: Performed By: #### C BC, ANEU, LIPID, ADIFF, CMP, GFR, A1C #### [address] [address] Chloride [Moles/Vol] 103 mmol/L Normal 98-107 [facility] ([place]) Comment on above: Performed By: #### C BC, ANEU, LIPID, ADIFF, CMP, GFR, A1C #### [address] [address] CO2 [Moles/Vol] 30 mmol/L Normal 23-31 [facility] ([place]) Comment on above: Performed By: #### C BC, ANEU, LIPID, ADIFF, CMP, GFR, A1C #### [address] [address] Creatinine [Mass/Vol] 1.51 mg/dL High 0.70-1.30 [facility] ([place]) Comment on above: Performed By: #### C BC, ANEU, LIPID, ADIFF, CMP, GFR, A1C #### [address] [address] Electrolyte Balance 6.0 mEq/L Normal 4.0-15.0 [facility] ([place]) Comment on above: Performed By: #### C BC, ANEU, LIPID, ADIFF, CMP, GFR, A1C #### [address] [address] Globulin 2.5 G/dL Normal Replaced By [facility] ([place]) Comment on above: Performed By: #### C BC, ANEU, LIPID, ADIFF, CMP, GFR, A1C #### [address] [address] Glucose [Mass/Vol] 125 mg/dL High 80-115 [facility] ([place]) Comment on above: Performed By: #### C BC, ANEU, LIPID, ADIFF, CMP, GFR, A1C #### [address] [address] Potassium [Moles/Vol] 4.8 mmol/L Normal 3.5-5.1 [facility] ([place]) Comment on above: Performed By: #### C BC, ANEU, LIPID, ADIFF, CMP, GFR, A1C #### [address] [address] Sodium [Moles/Vol] 139 mmol/L Normal 136-145 [facility] ([place]) Comment on above: Performed By: #### C BC, ANEU, LIPID, ADIFF, CMP, GFR, A1C #### [address] [address] Total Protein 5.9 G/dL Low 6.4-8.2 [facility] ([place]) Comment on above: Performed By: #### C BC, ANEU, LIPID, ADIFF, CMP, GFR, A1C #### [address] [address] Urea nitrogen [Mass/Vol] 18 mg/dL Normal 7-18 Replaced By [facility] ([place]) Comment on above: Performed By: #### C BC, ANEU, LIPID, ADIFF, CMP, GFR, A1C #### [address] [address] LIPIDon 12-12-2023 Cholesterol [Mass/Vol] 125 mg/dL Normal 0-200 Replaced By [facility] ([place]) Comment on above: Result Comment: Chol esterol Reference Interval: Less than 200 Desirable 200-239 Borderline high risk 240 and above High risk Performed By: #### A ALIZE, ADIFF, 840906, GFR, CBC, CMP #### [address] [address] Cholesterol in HDL [Mass/Vol] 42 mg/dL Normal 40-60 Replaced By [facility] ([place]) Comment on above: Performed By: #### A ALIZE, ADIFF, [id number], GFR, CBC, CMP #### [address] [address] Cholesterol in LDL [Mass/Vol] 24 mg/dL Normal 0-130 Replaced By [facility] ([place]) Comment on above: Performed By: #### A ALIZE, ADIFF, [id number], GFR, CBC, CMP #### [address] [address] Triglyceride [Mass/Vol] 296 mg/dL High 0-150 Replaced By [facility] ([place]) Comment on above: Result Comment: Trig lyceride Reference Interval: Less than 150 Normal 150-199 Borderline high risk 200-499 High risk 500 or higher Very high risk Performed By: #### A ALIZE, ADIFF, [id number], GFR, CBC, CMP #### [address] [address] MALBRon 12-13-2023 U Creatinine 145.6 mg/dL Normal 39.0-259.0 [facility] ([place]) Comment on above: Performed By: #### A ALIZE, ADIFF, 375893, GFR, CBC, CMP #### [address] [address] U Microalb 4602 mcg/dL Normal [facility] ([place]) Comment on above: Performed By: #### A ALIZE, ADIFF, 278493, GFR, CBC, CMP #### [address] [address] U Ratio Alb/Cre 32 mcg/mg High 0-30 [facility] ([place]) Comment on above: Performed By: #### A ALIZE, ADIFF, [id number], GFR, CBC, CMP #### [address] [address] LABORATORYOrdered By: SYSTEM SYSTEM on 10-26-2022 Calcium [Mass/Vol] 9.6 mg/dL Invalid Interpretation Code 8.7 - 10.4 mg/dL AH ADM SS Chloride [Moles/Vol] 102 mmol/L Invalid Interpretation Code 98 - 110 mEq/L AH ADM SS CO2 [Moles/Vol] 29 mmol/L Invalid Interpretation Code 22 - 32 mEq/L AH ADM SS Creatinine [Mass/Vol] 1.39 mg/dL Invalid Interpretation Code 0.60 - 1.40 mg/dL AH ADM SS Electrolyte Balance 8.0 mEq/L Invalid Interpretation Code 4.0 - 15.0 mEq/L ADM SS GFR/1.73 sq M.predicted among blacks MDRD (S/P/Bld) [Vol rate/Area] ml/min/1.73sqm Invalid Interpretation Code Chemistry S GFR/1.73 sq M.predicted among non-blacks MDRD (S/P/Bld) [Vol rate/Area] 51 ml/min/1.73sqm Invalid Interpretation Code Chemistry S Glucose [Mass/Vol] 137 mg/dL Invalid Interpretation Code 82 - 115 mg/dL ADM SS Potassium [Moles/Vol] 4.7 mmol/L Invalid Interpretation Code 3.5 - 5.0 mEq/L ADM SS Sodium [Moles/Vol] 139 mmol/L Invalid Interpretation Code 136 - 145 mEq/L ADM SS Urea nitrogen [Mass/Vol] 22.0 mg/dL Invalid Interpretation Code 8.0 - 22.0 mg/dL ADM SS Urea nitrogen/Creatinine [Mass ratio] 15.8 ratio Invalid Interpretation Code 10.0 - 22.0 ratio ADM SS LABORATORYOrdered By: Kassi Gutierrez on 10-24-2022 Basophil, Absolute 0.1 103/mcL Invalid Interpretation Code 0.0 - 0.2 10^3/mcL AO Workflow SS Basophils/100 WBC (Bld) 0.9 % Invalid Interpretation Code 0.0 - 2.5 % AO Workflow SS Eosinophil, Absolute 0.1 103/mcL Invalid Interpretation Code 0.0 - 0.4 10^3/mcL AO Workflow SS Eosinophils/100 WBC (Bld) 2.5 % Invalid Interpretation Code 0.0 - 7.0 % AO Workflow SS Erythrocyte distribution width (RBC) [Ratio] 15.5 % Invalid Interpretation Code 11.5 - 14.5 % AO Workflow SS Hematocrit (Bld) [Volume fraction] 39.6 % Invalid Interpretation Code 42.0 - 52.0 % AO Workflow SS Hemoglobin (Bld) [Mass/Vol] 12.9 G/dL Invalid Interpretation Code 14.0 - 18.0 G/dL AO Workflow SS Lymphocyte, Absolute 1.6 103/mcL Invalid Interpretation Code 0.8 - 3.9 10^3/mcL AO Workflow SS Lymphocytes/100 WBC (Bld) 29.2 % Invalid Interpretation Code 10.0 - 50.0 % AO Workflow SS MCH (RBC) [Entitic mass] 26.9 pg Invalid Interpretation Code 27.0 - 31.2 pg AO Workflow SS MCHC 32.6 G/dL Invalid Interpretation Code 31.8 - 35.4 G/dL AO Workflow SS MCV (RBC) [Entitic vol] 82.6 fL Invalid Interpretation Code 80.0 - 94.0 fL AO Workflow SS Monocyte, Absolute 0.6 103/mcL Invalid Interpretation Code 0.2 - 1.0 10^3/mcL AO Workflow SS Monocytes/100 WBC (Bld) 9.9 % Invalid Interpretation Code 1.7 - 13.0 % AO Workflow SS Neutrophil, Absolute 3.2 103/mcL Invalid Interpretation Code 2.9 - 6.2 10^3/mcL AO Workflow SS Neutrophils/100 WBC (Bld) 57.5 % Invalid Interpretation Code 37.0 - 80.0 % AO Workflow SS Platelet mean volume (Bld) [Entitic vol] 7.9 fL Invalid Interpretation Code 7.4 - 10.4 fL AO Workflow SS Platelets (Bld) [#/Vol] 258 103/mcL Invalid Interpretation Code 130 - 400 10^3/mcL AO Workflow SS RBC (Bld) [#/Vol] 4.80 106/mcL Invalid Interpretation Code 4.04 - 6.13 10^6/mcL AO Workflow SS WBC (Bld) [#/Vol] 5.6 103/mcL Invalid Interpretation Code 4.6 - 10.8 10^3/mcL AO Workflow SS LABORATORYOrdered By: SYSTEM SYSTEM on 10-24-2022 Calcium [Mass/Vol] 9.4 mg/dL Invalid Interpretation Code 8.4 - 10.2 mg/dL AO ADM SS Chloride [Moles/Vol] 101 mmol/L Invalid Interpretation Code 98 - 107 mmol/L AO ADM SS CO2 [Moles/Vol] 27 mmol/L Invalid Interpretation Code 23 - 31 mmol/L AO ADM SS Creatinine [Mass/Vol] 1.57 mg/dL Invalid Interpretation Code 0.70 - 1.30 mg/dL AO ADM SS Electrolyte Balance 10.0 mEq/L Invalid Interpretation Code 4.0 - 15.0 mEq/L AO ADM SS GFR/1.73 sq M.predicted among blacks MDRD (S/P/Bld) [Vol rate/Area] 54 ml/min/1.73sqm Invalid Interpretation Code AO Chemistry S GFR/1.73 sq M.predicted among non-blacks MDRD (S/P/Bld) [Vol rate/Area] 45 ml/min/1.73sqm Invalid Interpretation Code AO Chemistry S Glucose [Mass/Vol] 133 mg/dL Invalid Interpretation Code 80 - 115 mg/dL AO ADM SS Potassium [Moles/Vol] 5.4 mmol/L Invalid Interpretation Code 3.5 - 5.1 mmol/L AO ADM SS Sodium [Moles/Vol] 138 mmol/L Invalid Interpretation Code 136 - 145 mmol/L AO ADM SS Urea nitrogen [Mass/Vol] 25 mg/dL Invalid Interpretation Code 7 - 18 mg/dL AO ADM SS Urea nitrogen/Creatinine [Mass ratio] 16 ratio Invalid Interpretation Code 7 - 27 ratio AO ADM SS LABORATORYOrdered By: Kilo Veloz on 10-24-2022 INR Coag (PPP) [Relative time] 1.0 {INR} Invalid Interpretation Code AO [facility] SS PT Coag (PPP) [Time] 11.3 s Invalid Interpretation Code 9.1 - 14.2 seconds AO [facility] SS LABORATORYOrdered By: SYSTEM SYSTEM on 09-07-2022 Albumin BCP dye [Mass/Vol] 4.4 G/dL Invalid Interpretation Code 3.4 - 4.8 G/dL AO ADM SS Albumin/Globulin [Mass ratio] 1.5 {ratio} Invalid Interpretation Code 1.1 - 2.5 ratio AO ADM SS ALP [Catalytic activity/Vol] 103 U/L Invalid Interpretation Code 40 - 135 U/L AO ADM SS ALT With P-5'-P [Catalytic activity/Vol] 42 U/L Invalid Interpretation Code 16 - 63 U/L AO ADM SS AST With P-5'-P [Catalytic activity/Vol] 30 U/L Invalid Interpretation Code 10 - 40 U/L AO ADM SS Bilirubin [Mass/Vol] 0.9 mg/dL Invalid Interpretation Code 0.2 - 1.0 mg/dL AO ADM SS Calcium [Mass/Vol] 9.6 mg/dL Invalid Interpretation Code 8.4 - 10.2 mg/dL AO ADM SS Chloride [Moles/Vol] 103 mmol/L Invalid Interpretation Code 98 - 107 mmol/L AO ADM SS CO2 [Moles/Vol] 25 mmol/L Invalid Interpretation Code 23 - 31 mmol/L AO ADM SS Creatinine [Mass/Vol] 1.49 mg/dL Invalid Interpretation Code 0.70 - 1.30 mg/dL AO ADM SS Electrolyte Balance 14.0 mEq/L Invalid Interpretation Code 4.0 - 15.0 mEq/L AO ADM SS GFR/1.73 sq M.predicted among blacks MDRD (S/P/Bld) [Vol rate/Area] 57 ml/min/1.73sqm Invalid Interpretation Code AO Chemistry S GFR/1.73 sq M.predicted among non-blacks MDRD (S/P/Bld) [Vol rate/Area] 47 ml/min/1.73sqm Invalid Interpretation Code AO Chemistry S Globulin 2.9 G/dL Invalid Interpretation Code AO ADM SS Glucose [Mass/Vol] 91 mg/dL Invalid Interpretation Code 80 - 115 mg/dL AO ADM SS Potassium [Moles/Vol] 5.5 mmol/L Invalid Interpretation Code 3.5 - 5.1 mmol/L AO ADM SS Prostate specific Ag [Mass/Vol] ng/mL Invalid Interpretation Code 0.00 - 4.00 ng/mL AO ADM SS Protein [Mass/Vol] 7.3 G/dL Invalid Interpretation Code 6.4 - 8.2 G/dL AO ADM SS Sodium [Moles/Vol] 142 mmol/L Invalid Interpretation Code 136 - 145 mmol/L AO ADM SS TSH Qn 3.36 m[IU]/L Invalid Interpretation Code 0.36 - 3.74 mcIU/mL AO ADM SS Urea nitrogen [Mass/Vol] 23 mg/dL Invalid Interpretation Code 7 - 18 mg/dL AO ADM SS Urea nitrogen/Creatinine [Mass ratio] 15 ratio Invalid Interpretation Code 7 - 27 ratio AO ADM SS LABORATORYOrdered By: Darron Tai on 09-07-2022 Basophil, Absolute 0.0 103/mcL Invalid Interpretation Code 0.0 - 0.2 10^3/mcL AO Workflow SS Basophils/100 WBC (Bld) 0.9 % Invalid Interpretation Code 0.0 - 2.5 % AO Workflow SS Eosinophil, Absolute 0.1 103/mcL Invalid Interpretation Code 0.0 - 0.4 10^3/mcL AO Workflow SS Eosinophils/100 WBC (Bld) 1.5 % Invalid Interpretation Code 0.0 - 7.0 % AO Workflow SS Erythrocyte distribution width (RBC) [Ratio] 15.0 % Invalid Interpretation Code 11.5 - 14.5 % AO Workflow SS Hematocrit (Bld) [Volume fraction] 38.7 % Invalid Interpretation Code 42.0 - 52.0 % AO Workflow SS Hemoglobin (Bld) [Mass/Vol] 12.8 G/dL Invalid Interpretation Code 14.0 - 18.0 G/dL AO Workflow SS Lymphocyte, Absolute 1.3 103/mcL Invalid Interpretation Code 0.8 - 3.9 10^3/mcL AO Workflow SS Lymphocytes/100 WBC (Bld) 21.8 % Invalid Interpretation Code 10.0 - 50.0 % AO Workflow SS MCH (RBC) [Entitic mass] 27.0 pg Invalid Interpretation Code 27.0 - 31.2 pg AO Workflow SS MCHC 33.2 G/dL Invalid Interpretation Code 31.8 - 35.4 G/dL AO Workflow SS MCV (RBC) [Entitic vol] 81.5 fL Invalid Interpretation Code 80.0 - 94.0 fL AO Workflow SS Monocyte, Absolute 0.5 103/mcL Invalid Interpretation Code 0.2 - 1.0 10^3/mcL AO Workflow SS Monocytes/100 WBC (Bld) 8.9 % Invalid Interpretation Code 1.7 - 13.0 % AO Workflow SS Neutrophil, Absolute 3.9 103/mcL Invalid Interpretation Code 2.9 - 6.2 10^3/mcL AO Workflow SS Neutrophils/100 WBC (Bld) 66.9 % Invalid Interpretation Code 37.0 - 80.0 % AO Workflow SS Platelet mean volume (Bld) [Entitic vol] 8.2 fL Invalid Interpretation Code 7.4 - 10.4 fL AO Workflow SS Platelets (Bld) [#/Vol] 224 103/mcL Invalid Interpretation Code 130 - 400 10^3/mcL AO Workflow SS RBC (Bld) [#/Vol] 4.75 106/mcL Invalid Interpretation Code 4.04 - 6.13 10^6/mcL AO Workflow SS WBC (Bld) [#/Vol] 5.8 103/mcL Invalid Interpretation Code 4.6 - 10.8 10^3/mcL AO Workflow SS LABORATORYOrdered By: Kilo Veloz on 09-07-2022 Cholesterol [Mass/Vol] 142 mg/dL Invalid Interpretation Code 0 - 200 mg/dL AO ADM SS Cholesterol in HDL [Mass/Vol] 38 mg/dL Invalid Interpretation Code 40 - 60 mg/dL AO ADM SS Cholesterol in LDL [Mass/Vol] 57 mg/dL Invalid Interpretation Code 0 - 130 mg/dL AO ADM SS Triglyceride [Mass/Vol] 235 mg/dL Invalid Interpretation Code 0 - 150 mg/dL AO ADM SS LABORATORYOrdered By: Marika Gong on 09-15-2021 Albumin DL <= 20 mg/L (U) [Mass/Vol] 9572 mcg/dL Invalid Interpretation Code AO ADM SS Albumin/Creatinine DL <= 20 mg/L (U) [Mass ratio] 27 mcg/mg Invalid Interpretation Code 0 - 30 mcg/mg AO ADM SS Creatinine (U) [Mass/Vol] 350.0 mg/dL Invalid Interpretation Code 39.0 - 259.0 mg/dL AO ADM SS Albumin BCP dye [Mass/Vol] 4.3 G/dL Invalid Interpretation Code 3.4 - 4.8 G/dL AO ADM SS Albumin/Globulin [Mass ratio] 1.4 {ratio} Invalid Interpretation Code 1.1 - 2.5 ratio AO ADM SS ALP [Catalytic activity/Vol] 104 U/L Invalid Interpretation Code 40 - 135 U/L AO ADM SS ALT With P-5'-P [Catalytic activity/Vol] 34 U/L Invalid Interpretation Code 16 - 63 U/L AO ADM SS AST With P-5'-P [Catalytic activity/Vol] 25 U/L Invalid Interpretation Code 10 - 40 U/L AO ADM SS Bilirubin [Mass/Vol] 1.4 mg/dL Invalid Interpretation Code 0.2 - 1.0 mg/dL AO ADM SS Calcium [Mass/Vol] 9.1 mg/dL Invalid Interpretation Code 8.4 - 10.2 mg/dL AO ADM SS Chloride [Moles/Vol] 100 mmol/L Invalid Interpretation Code 98 - 107 mmol/L AO ADM SS Cholesterol [Mass/Vol] 127 mg/dL Invalid Interpretation Code 0 - 200 mg/dL AO ADM SS Cholesterol in HDL [Mass/Vol] 42 mg/dL Invalid Interpretation Code 40 - 60 mg/dL AO ADM SS Cholesterol in LDL [Mass/Vol] 62 mg/dL Invalid Interpretation Code 0 - 130 mg/dL AO ADM SS CO2 [Moles/Vol] 28 mmol/L Invalid Interpretation Code 23 - 31 mmol/L AO ADM SS Creatinine [Mass/Vol] 1.51 mg/dL Invalid Interpretation Code 0.70 - 1.30 mg/dL AO ADM SS Electrolyte Balance 9.0 mEq/L Invalid Interpretation Code 4.0 - 15.0 mEq/L AO ADM SS Globulin 3.0 G/dL Invalid Interpretation Code AO ADM SS Glucose [Mass/Vol] 165 mg/dL Invalid Interpretation Code 80 - 115 mg/dL AO ADM SS Potassium [Moles/Vol] 5.1 mmol/L Invalid Interpretation Code 3.5 - 5.1 mmol/L AO ADM SS Protein [Mass/Vol] 7.3 G/dL Invalid Interpretation Code 6.4 - 8.2 G/dL AO ADM SS Sodium [Moles/Vol] 137 mmol/L Invalid Interpretation Code 136 - 145 mmol/L AO ADM SS Triglyceride [Mass/Vol] 113 mg/dL Invalid Interpretation Code 0 - 150 mg/dL AO ADM SS Urea nitrogen [Mass/Vol] 22 mg/dL Invalid Interpretation Code 7 - 18 mg/dL AO ADM SS Urea nitrogen/Creatinine [Mass ratio] 15 ratio Invalid Interpretation Code 7 - 27 ratio AO ADM SS LABORATORYOrdered By: SYSTEM SYSTEM on 09-15-2021 GFR 57 ml/min/1.73sqm Invalid Interpretation Code AO Chemistry S GFR Non- 47 ml/min/1.73sqm Invalid Interpretation Code AO Chemistry S PET/CT AXUMINon 11-13-2018 PET/CT AXUMIN Patient Name: DANNIE GARCIA STUDY: PET/CT AXUMIN; 11/13/2018 10:49 am INDICATION: Malignant neoplasm of prostate. Status post prostatectomy. COMPARISON: None at the time of examination. ACCESSION NUMBER(S): [id number] ORDERING CLINICIAN: KAILEE MARROQUIN TECHNIQUE: DIVISION OF NUCLEAR MEDICINE POSITRON EMISSION TOMOGRAPHY (PET-CT) The patient received an intravenous dose of 12.9 mCi of Axumin? (fluciclovine F-18). Positron emission tomographic (PET) images from mid-thigh to skull base were then acquired after a 3-5 minute delay. Also acquired was a contemporaneous low dose noncontrast CT scan performed for attenuation correction of PET images and anatomic localization. The PET and CT images were digitally fused for display. All images were acquired on a combined PET-CT scanner unit. Some areas of FDG accumulation may be described in standardized uptake value (SUV) units. CODING: Initial treatment strategy (PI) CALIBRATION: Dose [id number] Interval (mins): 3 min L3 vertebral body SUV: 3.1 FINDINGS: NECK: No evidence of abnormal fluciclovine uptake is seen. CHEST: No evidence of abnormal fluciclovine uptake is seen in the lungs. No abnormal fluciclovine uptake is seen in the lymph nodes in the chest. ABDOMEN AND PELVIS: No evidence of abnormal fluciclovine uptake is seen in the prostate bed. No evidence of abnormal fluciclovine uptake is seen in the extra-prostatic tissues in the abdomen and pelvis. Nonspecific subcentimeter bilateral inguinal lymph nodes with SUV value is below the level of blood pool, likely reactive in etiology. Physiologic fluciclovine uptake is seen in the liver, pancreas and bone marrow. MUSCULOSKELETAL: Focus of uptake in the right antecubital fossa is secondary to isotope injection. Physiologic fluciclovine uptake is seen in the bone marrow. No focus of abnormal fluciclovine uptake is seen to suggest metastases. IMPRESSION: No evidence of abnormal fluciclovine uptake to suggest metastatic disease. I personally reviewed the image(s) / study and agree with the findings and interpretation as stated. This study was interpreted at [facility]. Electronically signed by: TOMASZ CAM MD [facility] Vital Signs Date Time Vital Sign Value Performing Clinician Brookei josue 10-26-2022 13:50-0400 Diastolic Blood Pressure Non-Invasive 60 1 JUAN SALOMON MD [address] [place] [address] 10-26-2022 13:50-0400 Heart rate 66 /min JUAN SALOMON MD [facility] 10-26-2022 13:50-0400 Systolic Blood Pressure Non-Invasive 130 1 JUAN SALOMON MD [facility] 10-26-2022 13:35-0400 Diastolic Blood Pressure Non-Invasive 78 1 JUAN SALOMON MD [facility] 10-26-2022 13:35-0400 Heart rate 68 /min JUAN SALOMON MD [facility] 10-26-2022 13:35-0400 Systolic Blood Pressure Non-Invasive 137 1 JUAN SALOMON MD [facility] 10-26-2022 13:23-0400 Diastolic Blood Pressure Non-Invasive 86 1 JUAN SALOMON MD [address] [place] [address] 10-26-2022 13:23-0400 Heart rate 61 /min JUAN SALOMON MD [address] [place] [address] 10-26-2022 13:23-0400 Systolic Blood Pressure Non-Invasive 128 1 JUAN SALOMON MD [address] [place] [address] 10-26-2022 13:05-0400 Respiratory rate 16 /min JUAN SALOMON MD [address] [place] [address] 10-26-2022 09:45-0400 Blood Pressure Location JUAN SALOMON MD [address] [place] [address] 10-26-2022 09:45-0400 Blood Pressure Method JUAN SALOMON MD [address] [place] [address] 10-26-2022 09:45-0400 Body height 182.9 cm JUAN SALOMON MD [address] [place] [address] 10-26-2022 09:45-0400 Body temperature 98.24 [degF] JUAN SALOMON MD [address] [place] [address] 10-26-2022 09:45-0400 Body weight 105.7 kg JUAN SALOMON MD [address] [place] [address] 10-26-2022 09:45-0400 Respiratory rate 16 /min JUAN SALOMON MD [address] [place] [address] Encounters Encounter Date Encounter Type Care Provider Facility Start: 01-12-2024 End: 01-12-2024 ambulatory DONA BEST APRN-YSABEL Facility:B Start: 01-12-2024 End: 01-12-2024 Patient encounter procedure [facility] Start: 12-13-2023 End: 12-13-2023 ambulatory [facility] Facility:B Start: 09-20-2023 ambulatory [facility] Facil ity:B Start: 08-23-2023 End: 08-23-2023 ambulatory [facility] Facility:B Start: 08-23-2023 End: 08-23-2023 Patient encounter procedure TOMASZ ERAZO DO [facility] Start: 03-22-2023 End: 03-22-2023 ambulatory TOMASZ ERAZO DO Facility:B Start: 03-22-2023 End: 03-22-2023 Patient encounter procedure TOMASZ ERAZO DO [facility] Start: 11-07-2022 End: 11-07-2022 Patient encounter procedure TOMASZ ERAZO DO [facility] Start: 10-26-2022 End: 10-26-2022 SAME DAY STAY JUAN SALOMON MD [facility] Start: 10-24-2022 End: 10-24-2022 Patient encounter procedure THOMPSON YOUNG DIRECTOR DIABETES-IT PROJECT MANAGER [facility] Start: 09-28-2022 End: 09-28-2022 Patient encounter procedure TOMASZ ERAZO DO [facility] Start: 09-07-2022 End: 09-07-2022 Patient encounter procedure TOMASZ ERAZO DO [facility] Start: 09-15-2021 End: 09-15-2021 Patient encounter procedure TOMASZ ERAZO DO [facility] Procedures Date Procedure Procedure Detail Performing Clinician Start: 03-08-2017 Prostate destructive procedure TOMASZ ERAZO DO Comment on above: Prostate removed Colonoscopy TOMASZ ERAZO DO Comment on above: 2009 normal Immunizations Immunization Date Immunization Notes Care Provider Fa [facility] 12-13-2023 Pneumococcal conjuga te PCV20, polysaccharide [id number] conjugate, adjuvant, PF; Translations: [Prevnar 20] DONA BEST DIRECTOR DIABETES-IT PROJECT MANAGER [facility] 04-20-2023 influenza, high dose seasonal, preservative-free; Translations: [Fluad Quadrivalent PF ] TOMASZ ERAZO DO [facility] 04-07-2021 SARS-CoV-2 mRNA (tozinameran) vaccine DONA BEST DIRECTOR DIABETES-IT PROJECT MANAGER [facility] 08-26-2020 SARS-CoV-2 mRNA (tozinameran) vaccine TOMASZ CASTRO AKERS [facility] 08-06-2020 SARS-CoV-2 mRNA (tozinameran) vaccine TOMASZ CASTRO AKERS [facility] 03-18-2020 influenza, injectabl e, quadrivalent, preservative free; Translations: [Fluarix PF Quadrivalent ] TOMASZ ERAZO DO [facility] 02-20-2016 influenza virus vacc ine, unspecified formulation TOMASZ ERAZO DO [facility] 05-22-2012 influenza virus vacc ine, unspecified formulation TOMASZ ERAZO DO [facility] 2008 tetanus toxoid, redu tram diphtheria toxoid, and acellular pertussis vaccine, adsorbed TOMASZ ERAZO DO [facility] 05-22-1992 pneumococcal polysaccharide vaccine, 23 valent TOMASZ ERAZO DO [facility] Payers Date Payer Category Payer Private Health Insurance [id number] 1955 Unknown [id number] 1955 Unknown [id number] 1955 Unknown [id number] 1955 Unknown [id number] [id number] 1955 Unknown [id number] [id number] Social History Date Type Detail Facility Start: 01-03-2019 Tobacco smoking status Never s moked tobacco (finding) [facility] Comment on above: no smoke exposure Sex Assigned At Male [facility] Functional Status Date Assessment Result Facility 10-26-2022 Functional Status Ambulating in room [facility] 10-26-2022 Functional Status [facility] 10-26-2022 Functional Status Maintained [facility] Mental Status Date Assessment Result Facility 10-26-2022 Mental Status Orientation Oriented x 4 [facility] 10-26-2022 Mental Status [facility] 10-26-2022 Mental Status [facility] Clinical Notes 10-26-2022 LaboratoryRadiologyRadiology Note Date & Type Note Facility 10-26-2022 Discharge summary Date of Service 10/26/22 Discharge Diagnosis SOB HTN DM HLD Hospital Course 67-year-old male who came to the hospital for shortness of breath. Patient with left heart catheterization that showed a normal coronaries. LVEDP was also normal. Patient is discharged home without any complication. Allergies NKA Consults No qualifying data available. Objective Vitals and Measurements T: 36.8 C (Oral) HR: 85 RR: 16 BP: 138/78 SpO2: 98% HT: 182.9 cm WT: 105.7 kg Weight Dosing Weight: 105.7 kg (10/26/22) General Appearance: Alert and oriented x3 Head: No visible trauma EENT: Bilateral equal pupil no ptosis Neck: No JVD on examination. Cardiac: S1-S2, regular rate rhythm Lungs: Bilateral equal air entry Abdomen: Distended nontender Musculoskeletal: No complaints of muscular pain Extremities:NO Significant lower extremity edema Code Status No qualifying data available. Admission Date 10/26/22 Discharge Date 10/26/22 Medications Unchanged atorvastatin (atorvastatin 40 mg oral tablet)1 tab(s) by mouth once a day. Refills: 3. cholecalciferol (Vitamin D3 125 mcg (5000 intl units) oral capsule)1 cap by mouth once a day. dapagliflozin (Farxiga 10 mg oral tablet)1 tab(s) by mouth once a day. Refills: 1. ferrous sulfate (IRON (ferrous sulfate 325 mg) 65 mg oral tablet)1 tab(s) by mouth every day. Take with food.. lisinopril (lisinopril 5 mg oral tablet)1 tab(s) by mouth once a day. Refills: 3. menaquinone (Vitamin K2 100 mcg oral tablet)1 tab(s) by mouth once a day. metFORMIN (metFORMIN 1000 mg oral tablet (IR))1 tab(s) by mouth two (2) times a day. Refills: 3. omega-3 polyunsaturated fatty acids (Hollywood-3 1000 mg oral capsule)1 cap by mouth once a day. sertraline (sertraline 50 mg oral tablet)1.5 tab(s) by mouth once a day. Refills: 3. ubiquinone (Co Q-10 100 mg oral capsule)1 cap by mouth every day. Follow Up Appointments No qualifying data available. Follow Up Labs/Studies Discharge Labs No Follow-up Labs Discharge Studies No Follow-up Studies Discharge Diet Discharge Diet - Ordered -- No changes were made to your diet during your hospital stay. Please resume your pre hospitalization diet on discharge., 10/26/22 12:58:00 EDT Discharge Activity Discharge Activity - Ordered -- Lifting Restricted less than 5 pounds, 10/26/22 12:58:00 EDT Condition on Discharge stable Readmission Risk/Palliative Score No qualifying data available. Discharge Disposition home Information Provided To patient Digitally Signed by ANNA JONES MD on 10/26/2022 01:00 PM [facility] 10-26-2022 Hospital Discharg e instructions Patient Education 10/26/2022 14:48:31 3- Heart Cath/PCI radial (02/2018) (CUSTOM) HEART CATHETERIZATION/PCI (radial) Discharge Instructions DIET Drink plenty of fluids for the next 48 hours to help your kidneys flush the heart cath dye out of your system ACTIVITY For the next 48 hours: Do not deep bend the wrist Do not lift, push, or pull anything over 5 pounds Do not use the hand/arm to support your weight when rising from a chair or bed Do not drive For the next 7 days: Do not submerse your procedure site in water Do not swim, wash dishes, or take tub baths You may write, eat, type, and shower WOUND CARE Remove the dressing in 24 hours and apply a Band-Aid. (1pm) Keep a Band-Aid on your procedure site for the next 3-4 days Change the Band-Aid daily or if it gets wet/soiled AFTER YOU GO HOME, CALL YOUR DOCTOR FOR: Any increase in bruising or tenderness from the procedure site Any redness, pus, or other signs of infection at the site A temperature above 100.5 Severe pain at the site DIAL 911 AND RETURN TO THE HOSPITAL FOR: Any bleeding from the procedure site. The site may be bruised or tender, but it should not be bleeding at any time. If your site begins to bleed, hold firm pressure on it and dial 911 to return to the hospital Any increase in swelling at the procedure site. An increase in swelling could mean the area is bleeding under the skin. Hold firm pressure to the site and dial 911 to return to the hospital Document Released: 05/08/2006 Document Revised: 04/24/2013 Document Reviewed: 05/09/2014 ExitCare Patient Information 2015 [employer], [employer]. This information is not intended to replace advice given to you by your health care provider. Make sure you discuss any questions you have with your health care provider. 10/26/2022 14:46:04 Moderate Conscious Sedation, Adult, Care After Moderate Conscious Sedation, Adult, Care After These instructions provide you with information about caring for yourself after your procedure. Your health care provider may also give you more specific instructions. Your treatment has been planned according to current medical practices, but problems sometimes occur. Call your health care provider if you have any problems or questions after your procedure. What can I expect after the procedure? After your procedure, it is common: To feel sleepy for several hours. To feel clumsy and have poor balance for several hours. To have poor judgment for several hours. To vomit if you eat too soon. Follow these instructions at home: For at least 24 hours after the procedure: Do not: ?Participate in activities where you could fall or become injured. ?Drive. ?Use heavy machinery. ?Drink alcohol. ?Take sleeping pills or medicines that cause drowsiness. ?Make important decisions or sign legal documents. ?Take care of children on your own. Rest. Eating and drinking Follow the diet recommended by your health care provider. If you vomit: ?Drink water, juice, or soup when you can drink without vomiting. ?Make sure you have little or no nausea before eating solid foods. General instructions Have a responsible adult stay with you until you are awake and alert. Take fhog-xnk-qzpavdk and prescription medicines only as told by your health care provider. If you smoke, do not smoke without supervision. Keep all follow-up visits as told by your health care provider. This is important. Contact a health care provider if: You keep feeling nauseous or you keep vomiting. You feel light-headed. You develop a rash. You have a fever. Get help right away if: You have trouble breathing. This information is not intended to replace advice given to you by your health care provider. Make sure you discuss any questions you have with your health care provider. Document Released: 02/26/2014 Document Revised: 04/20/2018 Document Reviewed: 08/27/2016 [employer] Patient Education 2020 [employer] Follow Up Care 10/13/2022 14:07:59 With:JUAN SALOMON MD Address: [address] [place] [address] [place] [address]- [phone] When:12/08/2022 13:00:00 [facility] 10-26-2022 Summary of episod e note Discharge Instructions Thank you for allowing [facility] to assist you with your healthcare needs. The following is important discharge information regarding your hospital visit. Your Care Team TOMASZ ERAZO DO What to do next Scheduled Follow-Up Appointments Appointment Type When With Where Contact InformationDB Diabetic Individual Visit (AOH) 10/28/2022 03:30 PM EDT [place] [facility] [phone] NUT Diet Visit Individual 11/07/2022 12:30 PM EDT [facility] [phone] CV OV 12/08/2022 01:00 PM EDT [facility] PC OV 04/05/2023 01:30 PM EST TOMASZ ERAZO DO [facility] Follow Up Appointments Follow Up with JUAN SALOMON MD When 12/08/2022 01:00 PM EDT Where: [address] [facility] [place] [address]- [phone] The Following Activity and Diet Have Been Ordered for You Discharge Activity - Ordered -- Lifting Restricted less than 5 pounds, 10/26/22 12:58:00 EDT Discharge Diet - Ordered -- No changes were made to your diet during your hospital stay. Please resume your pre hospitalization diet on discharge., 10/26/22 12:58:00 EDT Allergies NKA Medications Please ask your primary doctor or pharmacist before taking any other medication not listed, including over the counter drugs, herbal medications, vitamins and or supplements as they may interact with your home medications. What How Much When Why Instructions Last Dose Unchanged atorvastatin (atorvastatin 40 mg oral tablet) 1 tab(s) by mouth Once a day Unchanged cholecalciferol (Vitamin D3 125 mcg (5000 intl units) oral capsule) 1 cap by mouth Once a day Unchanged dapagliflozin (Farxiga 10 mg oral tablet) 1 tab(s) by mouth Once a day Diabetes CKD (chronic kidney disease) stage 3, GFR 30-59 ml/min Unchanged ferrous sulfate (IRON (ferrous sulfate 325 mg) 65 mg oral tablet) 1 tab(s) by mouth Every day Take with food. Unchanged lisinopril (lisinopril 5 mg oral tablet) 1 tab(s) by mouth Once a day Unchanged menaquinone (Vitamin K2 100 mcg oral tablet) 1 tab(s) by mouth Once a day Unchanged metFORMIN (metFORMIN 1000 mg oral tablet (IR)) 1 tab(s) by mouth Two (2) times a day hold for 48 hours. Restart after 1pm 10/28/22 Unchanged omega-3 polyunsaturated fatty acids (Hollywood-3 1000 mg oral capsule) 1 cap by mouth Once a day Unchanged sertraline (sertraline 50 mg oral tablet) 1.5 tab(s) by mouth Once a day Unchanged ubiquinone (Co Q-10 100 mg oral capsule) 1 cap by mouth Every day Please take this list to your next doctor s visit. Bring all medications you take, including over the counter medications, herbals and other supplements with you to your doctor s visit. Patients and families are reminded to discard old lists and to update any records with all medication providers or retail pharmacies. Education Materials HEART CATHETERIZATION/PCI (radial) Discharge Instructions DIET Drink plenty of fluids for the next 48 hours to help your kidneys flush the heart cath dye out of your system ACTIVITY For the next 48 hours: Do not deep bend the wrist Do not lift, push, or pull anything over 5 pounds Do not use the hand/arm to support your weight when rising from a chair or bed Do not drive For the next 7 days: Do not submerse your procedure site in water Do not swim, wash dishes, or take tub baths You may write, eat, type, and shower WOUND CARE Remove the dressing in 24 hours and apply a Band-Aid. (1pm) Keep a Band-Aid on your procedure site for the next 3-4 days Change the Band-Aid daily or if it gets wet/soiled AFTER YOU GO HOME, CALL YOUR DOCTOR FOR: Any increase in bruising or tenderness from the procedure site Any redness, pus, or other signs of infection at the site A temperature above 100.5 Severe pain at the site DIAL 911 AND RETURN TO THE HOSPITAL FOR: Any bleeding from the procedure site. The site may be bruised or tender, but it should not be bleeding at any time. If your site begins to bleed, hold firm pressure on it and dial 911 to return to the hospital Any increase in swelling at the procedure site. An increase in swelling could mean the area is bleeding under the skin. Hold firm pressure to the site and dial 911 to return to the hospital Document Released: 05/08/2006 Document Revised: 04/24/2013 Document Reviewed: 05/09/2014 ExitCare Patient Information 2015 [employer] This information is not intended to replace advice given to you by your health care provider. Make sure you discuss any questions you have with your health care provider. Moderate Conscious Sedation, Adult, Care After These instructions provide you with information about caring for yourself after your procedure. Your health care provider may also give you more specific instructions. Your treatment has been planned according to current medical practices, but problems sometimes occur. Call your health care provider if you have any problems or questions after your procedure. What can I expect after the procedure? After your procedure, it is common: To feel sleepy for several hours. To feel clumsy and have poor balance for several hours. To have poor judgment for several hours. To vomit if you eat too soon. Follow these instructions at home: For at least 24 hours after the procedure: Do not: ? Participate in activities where you could fall or become injured. ? Drive. ? Use heavy machinery. ? Drink alcohol. ? Take sleeping pills or medicines that cause drowsiness. ? Make important decisions or sign legal documents. ? Take care of children on your own. Rest. Eating and drinking Follow the diet recommended by your health care provider. If you vomit: ? Drink water, juice, or soup when you can drink without vomiting. ? Make sure you have little or no nausea before eating solid foods. General instructions Have a responsible adult stay with you until you are awake and alert. Take ufud-hlb-twhlhws and prescription medicines only as told by your health care provider. If you smoke, do not smoke without supervision. Keep all follow-up visits as told by your health care provider. This is important. Contact a health care provider if: You keep feeling nauseous or you keep vomiting. You feel light-headed. You develop a rash. You have a fever. Get help right away if: You have trouble breathing. This information is not intended to replace advice given to you by your health care provider. Make sure you discuss any questions you have with your health care provider. Document Released: 02/26/2014 Document Revised: 04/20/2018 Document Reviewed: 08/27/2016 Elsevier Patient Education 2020 [employer] Additional Information VACCINATE! IT SAVES LIVES! Members of the community who have not yet received the COVID-19 vaccine and would like to receive it can visit one of [facility] vaccine clinics. There are many vaccine clinic locations within the [facility]. For locations and available times, please visit https://gettheshot.coronavirus.o hio.gov/. It is important to note that some COVID mobile vaccine clinics are held outdoors and may be canceled in rainy or stormy conditions. To learn more about pediatric vaccinations (ages 5-11), we invite you to visit the [employer] [facility] webpage. https://www.Playnerys.org/p ages/0485-Xtgfc-Ikmprcxydxk-Freq curvso-Jriyq-Xaulxtzsf.html To learn more about the COVID-19 vaccine, we invite you to visit the CDC website for a list of frequently asked questions.https://www.cdc.gov/co ronavirus/2019-ncov/vaccines/faq .html [employer] Patient Portal Access Instructions: Stay connected with your healthcare team and access your personal medical information anytime with the [employer] Patient Portal. Please follow the directions below to create your [employer] account: 1.Access the email account you provided upon registration to the hospital/physician office.2.Look for an invitation email from [facility].3.Open the email and access the invitation link: Accept Invitation to [employer].4.Fill in the required tamayo to create your account. To access your account, visit [email or web address]. Click the blue button labeled Access Patient Portal and then log in with the username and password that you created in the steps above. You will be able to view your test results, lab results, a summary of your visits, upcoming appointments and more. There is also a convenient messaging option where you can send secure messages to your provider. In addition, you will have the ability to download any documents or summaries to your computer and/or send the information securely to a physician. Remember that your healthcare information is confidential, so carefully consider who you will allow to register on the [employer] Patient Portal for access to your information. You can also access the [facility] Patient Portal on the [facility] pascale. Simply click on Patient Portal and then log into your account. If you would like to receive a full copy of your medical records, please contact the [facility] Medical Records Department by calling [phone], Monday through Monday between 8 a.m. and 4:30 p.m. HOW TO SAFELY DISPOSE OF PRESCRIPTION MEDICATIONS Please use one of the following methods to safely dispose of your unused medications. 1.Use a drug disposal kit: the drug disposal pouch allows you to safely discard your old and unused drugs. Ask your nurse to give you one when you are discharged.2.Visit a local take-back location: Many local pharmacies and police departments have programs that collect old and unwanted prescription drugs. Call your local pharmacy or go to http://Kabbee.Azimo/1X8Vp4d to find one close to you.3.Make use of household items: Use cat litter or old coffee grounds to dispose medications if other options are not available. Mix your drugs with these household products, seal them in an airtight container and throw it into the garbage. Call [facility]: [phone] to be sure your drugs can be disposed of in this way. Some medicines may require a different approach.4.Never flush your medications down the toilet. IF YOU HAVE BEEN PRESCRIBED AN OPIOID FOR PAIN If you have been prescribed an opioid (such as hydrocodone, oxycodone or morphine), it is critical to understand the possible side effects and risks of opioid pain medications. Even when taken as directed, opioids can have several side effects including: Tolerance, meaning you might need to take more of a medication for the same pain relief. Nausea, vomiting and/or constipation. Sleepiness, dizziness, dry mouth, confusion, depression or itching. Physical dependence, meaning you have withdrawal symptoms when a medication is stopped, can develop within a few days. KNOW YOUR RESPONSIBILITIES It is important to know exactly how much and how often to take the opioid pain medications you are prescribed. Never take opioids in higher amounts or more often than prescribed. Do not combine opioids with alcohol or other drugs that cause drowsiness, such as benzodiazepines, also known as benzos, including diazepam and alprazolam, muscle relaxants or sleep aids. Never sell or share prescription opioids. This is illegal. Store opioids in a secure place and out of reach of others (including children, family, friends and visitors). The last page of this document has been signed and retained as a CHART COPY. Signatures Patient Education Materials 3- Heart Cath/PCI radial (02/2018) (CUSTOM) Moderate Conscious Sedation, Adult, Care After Medication Leaflets My discharge plan and instructions have been reviewed and explained to me and I,DANNIE GARCIA understand my current condition and have read and understand these discharge instructions. I have received a written copy of the plan/instructions. If I have questions, I am aware that I should contact my doctor. Patient/Cobol Developer Signature: Date/Time: Relationship to Patient: Witness Name/Signature: Date/Time: [facility] 10-26-2022 Discharge summary Date of Service 10/26/22 Discharge Diagnosis SOB HTN DM HLD Hospital Course 67-year-old male who came to the hospital for shortness of breath. Patient with left heart catheterization that showed a normal coronaries. LVEDP was also normal. Patient is discharged home without any complication. Allergies NKA Consults No qualifying data available. Objective Vitals and Measurements T: 36.8 C (Oral) HR: 85 RR: 16 BP: 138/78 SpO2: 98% HT: 182.9 cm WT: 105.7 kg Weight Dosing Weight: 105.7 kg (10/26/22) General Appearance: Alert and oriented x3 Head: No visible trauma EENT: Bilateral equal pupil no ptosis Neck: No JVD on examination. Cardiac: S1-S2, regular rate rhythm Lungs: Bilateral equal air entry Abdomen: Distended nontender Musculoskeletal: No complaints of muscular pain Extremities:NO Significant lower extremity edema Code Status No qualifying data available. Admission Date 10/26/22 Discharge Date 10/26/22 Medications Unchanged atorvastatin (atorvastatin 40 mg oral tablet)1 tab(s) by mouth once a day. Refills: 3. cholecalciferol (Vitamin D3 125 mcg (5000 intl units) oral capsule)1 cap by mouth once a day. dapagliflozin (Farxiga 10 mg oral tablet)1 tab(s) by mouth once a day. Refills: 1. ferrous sulfate (IRON (ferrous sulfate 325 mg) 65 mg oral tablet)1 tab(s) by mouth every day. Take with food.. lisinopril (lisinopril 5 mg oral tablet)1 tab(s) by mouth once a day. Refills: 3. menaquinone (Vitamin K2 100 mcg oral tablet)1 tab(s) by mouth once a day. metFORMIN (metFORMIN 1000 mg oral tablet (IR))1 tab(s) by mouth two (2) times a day. Refills: 3. omega-3 polyunsaturated fatty acids ([place]-3 1000 mg oral capsule)1 cap by mouth once a day. sertraline (sertraline 50 mg oral tablet)1.5 tab(s) by mouth once a day. Refills: 3. ubiquinone (Co Q-10 100 mg oral capsule)1 cap by mouth every day. Follow Up Appointments No qualifying data available. Follow Up Labs/Studies Discharge Labs No Follow-up Labs Discharge Studies No Follow-up Studies Discharge Diet Discharge Diet - Ordered -- No changes were made to your diet during your hospital stay. Please resume your pre hospitalization diet on discharge., 10/26/22 12:58:00 EDT Discharge Activity Discharge Activity - Ordered -- Lifting Restricted less than 5 pounds, 10/26/22 12:58:00 EDT Condition on Discharge stable Readmission Risk/Palliative Score No qualifying data available. Discharge Disposition home Information Provided To patient Digitally Signed by ANNA JONES MD on 10/26/2022 01:00 PM [facility] Evaluation + Plan note Future Appointments Appointment Date:03/16/2022 09:30:00 AM Scheduled Provider:TOMASZ ERAZO DO Location:[facility] Appointment Type:PC OV Follow Up [facility] Evaluation + Plan note Future Appointments Appointment Date:10/05/2022 02:30:00 PM Scheduled Provider:TOMASZ ERAZO DO Location:[facility] Appointment Type:PC OV Follow Up [facility] Evaluation + Plan note Future Appointments Appointment Date:10/05/2022 11:30:00 AM Scheduled Provider: Location:[facility] Appointment Type:NUT Diet Visit Individual Appointment Date:10/05/2022 01:30:00 PM Scheduled Provider: Location:[facility] Appointment Type:DB Diabetic Individual Visit (AOH) Appointment Date:10/05/2022 02:30:00 PM Scheduled Provider:TOMASZ ERAZO DO Location:[facility] Appointment Type:PC OV Follow Up Future Scheduled TestsBasic Metabolic Panel 10/09/22 [facility] Evaluation + Plan note Future Appointments Appointment Date:10/26/2022 09:00:00 AM Scheduled Provider: Location:[facility] Appointment Type:CV Procedure - Heart Lab/Hybrid OR Appointment Date:10/28/2022 03:30:00 PM Scheduled Provider: Location:[facility] Appointment Type:DB Diabetic Individual Visit (AOH) Appointment Date:11/07/2022 12:30:00 PM Scheduled Provider: Location:[facility] Appointment Type:NUT Diet Visit Individual Appointment Date:12/08/2022 01:00:00 PM Scheduled Provider: Location:[facility] Appointment Type:CV OV Appointment Date:04/05/2023 01:30:00 PM Scheduled Provider:TOMASZ ERAZO DO Location:[facility] Appointment Type:PC OV [facility] Evaluation + Plan note Future Appointments Appointment Date:10/28/2022 03:30:00 PM Scheduled Provider: Location:[facility] Appointment Type:DB Diabetic Individual Visit (AOH) Appointment Date:11/07/2022 12:30:00 PM Scheduled Provider: Location:[facility] Appointment Type:NUT Diet Visit Individual Appointment Date:12/08/2022 01:00:00 PM Scheduled Provider: Location:[facility] Appointment Type:CV OV Appointment Date:04/05/2023 01:30:00 PM Scheduled Provider:TOMASZ ERAZO DO Location:[facility] Appointment Type:PC OV [facility] Evaluation + Plan note Future Appointments Appointment Date:11/23/2022 02:00:00 PM Scheduled Provider: Location:[facility] Appointment Type:DB Diabetic Individual Visit (AOH) Appointment Date:12/07/2022 10:30:00 AM Scheduled Provider:TOMASZ ERAZO DO Location:[facility] Appointment Type: Wellness Medicare with Labs Appointment Date:12/08/2022 01:00:00 PM Scheduled Provider: Location:[facility] Appointment Type:CV OV Appointment Date:04/05/2023 01:30:00 PM Scheduled Provider:TOMASZ ERAZO DO Location:[facility] Appointment Type:PC OV [facility] Evaluation + Plan note Future Appointments Appointment Date:04/05/2023 01:30:00 PM Scheduled Provider:TOMASZ ERAZO DO Location:[facility] Appointment Type:PC OV Appointment Date:09/20/2023 01:00:00 PM Scheduled Provider: Location:[facility] Appointment Type:DB Diabetic Individual Visit (AOH) Future Scheduled TestsCT Thorax w/o Contrast 12/07/22 [facility] Evaluation + Plan note Future Appointments Appointment Date:09/20/2023 01:00:00 PM Scheduled Provider: Location:[facility] Appointment Type:MEDS - Diabetic Individual Visit Appointment Date:10/11/2023 01:30:00 PM Scheduled Provider:TOMASZ ERAZO DO Location:[facility] Appointment Type:PC OV Future Scheduled TestsCT Thorax w/o Contrast 12/07/22 [facility] Evaluation + Plan note Future Appointments Appointment Date:03/22/2024 01:00:00 PM Scheduled Provider: Location:[facility] Appointment Type:MEDS - Diabetic Individual Visit Appointment Date:06/19/2024 01:30:00 PM Scheduled Provider:TOMASZ ERAZO DO Location:[facility] Appointment Type:PC OV Appointment Date:12/18/2024 01:30:00 PM Scheduled Provider:TOMASZ ERAZO DO Location:[facility] Appointment Type:PC Wellness Medicare Diagnostic Tests PendingCK, Total+Isoenzymes, Serum 01/12/24 [facility] Hospital course Narrative No data available for this section [facility] Hospital Discharge instructions No data available for this section [facility] Progress note No data available for this section [facility] Summary Purpose Family History No Family History Records Found No data available for this section No data available for this section No data available for this section No Family History Records Found Advance Directives No Advanced Directives Records FoundNo Advanced Directives Records Found Additional Source Comments (unrecognized sect ion and content) No Status Records FoundNo Status Records Found INFORMATION SOURCE (unrecogn ized section and content) DATE CREATED AUTHOR 01/20/2019 [facility] DATE CREATED AUTHOR AUTHOR'S ORGANIZ ATION 01/18/2024 [facility] ([place]) Care Team (unrecognized sect ion and content) Personnel Name: TOMASZ ERAZO DO Address: [address] [place] [address]- Care Team Personnel Name: TOMASZ ERAZO DO Position: P4 Physician - Primary Care Member Role: Primary Care Physician Address: Address: [address] [place] [address]- Care Team Related Persons Name: GILES GARCIA Address: [address] [place] [address] [place] Care Team Personnel Name: TOMASZ ERAZO DO Position: P4 Physician - Primary Care Member Role: Primary Care Physician Address: Address: [address] [place] [address]- Care Team Related Persons Name: GILES GARCIA Address: [address] [place] [address] [place] Care Team Personnel Name: TOMASZ ERAZO DO Position: P4 Physician - Primary Care Member Role: Primary Care Physician Address: Address: [address] [place] [address]- Care Team Related Persons Name: GILES GARCIA Address: [address] [place] [address] [place] Care Team Personnel Name: TOMASZ ERAZO DO Position: P4 Physician - Primary Care Member Role: Primary Care Physician Address: Address: [address] [place] [id number]- Care Team Related Persons Name: GILES GARCIA Address: [address] [place] [address] [place] Care Team Personnel Name: TOMASZ ERAZO DO Position: P4 Physician - Primary Care Member Role: Primary Care Physician Address: Address: [address] [place] [address]- Care Team Related Persons Name: GILES GARCIA Address: [address] [place] [address] [place] Care Team Personnel Name: TOMASZ ERAZO DO Position: P4 Physician - Primary Care Member Role: Primary Care Physician Address: Address: [address] [place] [address]- Care Team Related Persons Name: GILES GARICA Address: [address] [place] [address] [place] Care Team Personnel Name: TOMASZ ERAZO DO Position: P4 Physician - Primary Care Member Role: Primary Care Physician Address: Address: [address] [place] [address]- Care Team Related Persons Name: GILES GARCIA Address: [address] [place] [address] [place] Care Team Personnel Name: TOMASZ ERAZO DO Position: P4 Physician - Primary Care Member Role: Primary Care Physician Address: Address: [address] [place] [address]- Care Team Related Persons Name: GILES GARCIA Address: [address] [place] [address] [place] FOR RECORDS PERTAINING TO PATIENTS WHO ARE OR HAVE BEEN ENROLLED IN A CHEMICAL DEPENDENCY/SUBSTANCEABUSE PROGRAM, SOME INFORMATION MAY BE OMITTED. This clinical summary was aggregated from multiple sources. Caution should be exercised in using it in the provision of clinical care. This summary normalizes information from multiple sources, and as a consequence, information in this document may materially change the coding, format and clinical context of patient data. In addition, data may be omitted in some cases. CLINICAL DECISIONS SHOULD BE BASED ON THE PRIMARY CLINICAL RECORDS. [facility]. provides no warranty or guarantee of the accuracy or completeness of information in this document.
== END | disposition home or self-care (01) ==
PROVIDERS: PCP Preventive Medicine Occupational Medicine; Referring Provider Internal Medicine Nephrology; Visit Provider Internal Medicine Nephrology
DX: N18.31 Chronic kidney disease, stage 3a (principal)
CPT/HCPCS: 36415; 80048; 82570; 84156